=== PATIENT | male | born 1960 | race Caucasian/White ===

== ENCOUNTER 2023-06-25 19:47 | Inpatient (IN) | payer OTHER, SELFPAY ==
[2023-06-25 14:47] VITALS: BP 154/78
[2023-06-25 15:06] LABS: % Basophils 0.4 % (0-2); % Eosinophils 0.1 % (0-6); % Immature Granulocytes 0.4 % (0-0.5); % Lymphocytes 14.4 % (20.5-51.1); % Monocytes 4.5 % (1.7-9.3); % Neutrophils 80.2 % (42.2-75.2); Absolute Basophils 0.1 10^3/uL (0-0.2); Absolute Immature Granulocytes 0.1 10^3/uL (0-0.05); Absolute Monocytes 0.6 10^3/uL (0.1-0.6); Absolute Neutrophils 11.4 10^3/uL (1.4-6.5); Hematocrit 44.7 % (39.0-52.0); Hemoglobin 15.6 g/dL (13.0-18.0); Mean Corp Hgb Conc. 34.9 g/dL (33.0-37.0); Mean Corpuscular Hgb 29.3 pg (27.0-31.0); Mean Platelet Volume 10.8 fL (7.4-10.4); Nucleated Red Blood Cells % 0 % (-); Platelet Count 258 10^3/uL (130-400); Red Blood Cell Count 5.32 10^6/uL (4.70-6.10); Red Cell Dist. Width 13.5 % (11.5-14.5); White Blood Cell Count 14.2 10^3/uL (4.8-10.8)
--- NOTE | 2023-06-25 15:11 | ED.GENMED ---
History of Present Illness
<Ada Starr PA-C - Last Filed: 06/25/23 17:58>
General
Chief Complaint: Abdominal Pain
Source: patient and records
Exam Limitations: none
Time Seen by Provider: 06/25/23 15:11
Nursing documentation reviewed up to this point in time: agreed with
Travel History
Have you had any contact with someone who has COVID-19?: No
Do you have any symptoms of coronavirus? Fever > 100 degrees, chills, cough, shortness of breath, sore throat, loss of taste or smell, muscle aches, or headache?: No
History of Present Illness
History of Present Illness:
63-year-old male with past medical history of arthritis on daily meloxicam presenting emergency department today with sudden onset periumbilical pain for the past 5 hours. Patient states that when the pain first started, he thought it was
indigestion, however as hours progressed, the pain got a lot worse. Patient also has associated nausea with this. Patient states that occasionally he will get mild chest pain with this. Patient notes some nausea as well but denies vomiting,
dizziness, melena, radiation pain to the back, diarrhea. Patient is never had anything like this before. Patient has no history of prior abdominal surgeries. Patient does not drink alcohol.
Review of Systems
<Ada Starr PA-C - Last Filed: 06/25/23 17:58>
Review of Systems
All Other Systems: ROS reviewed and negative except as documented in HPI and ROS
Phy Exam
<Ada Starr PA-C - Last Filed: 06/25/23 17:58>
Physical Exam
Physical Exam:
Vitals: Patient is tachypneic
General: Patient seen writhing in pain, very distressed
Skin: Warm and dry, no rashes
Head: Normocephalic, atraumatic
Eyes: Sclera nonicteric
Cardiac: Regular rate, no murmurs
Peripheral vascular: Patient has 2+ dorsalis pedis pulses bilaterally, equal radial pulses bilaterally. No lower extremity swelling.
Pulm: Patient is tachypneic
Abdomen: Patient has diffuse abdominal tenderness palpation most prominent in the periumbilical region, guarding present. No rebound tenderness. No pulsatile abdominal mass. Abdominal pain with any movement.
Neuro: CN II-XII intact. No focal neurologic deficits.
Course
<Ada Starr PA-C - Last Filed: 06/25/23 17:58>
Orders/Labs/Results
Orders:
Orders
06/25/23 14:51
EKG [Electrocardiogram (*1)] Urgent
Reason for Study: Abdominal Pain
EKG- Treatment ONCE
06/25/23 14:58
Complete Blood Count/With Diff Urgent
Comprehensive Metabolic Panel Urgent
Lipase Urgent
06/25/23 15:27
IV Insert/Care/Rem.- Treatment PRN
Famotidine [Pepcid] 20 mg IV NOW STA
HYDROmorphone [Dilaudid] 1 mg IV NOW STA
Pantoprazole [Protonix IV] 40 mg IV NOW STA
06/25/23 15:37
CT Angio Abd/Pelvis w/wo IV [CT Abd/pelvis Angio W/wo Iv] Urgent
Comment:
Reason For Exam: sudden onset periumbilical pain
06/25/23 15:38
Troponin I Urgent
06/25/23 15:40
Ondansetron Injectable [Zofran] 4 mg IV NOW STA
06/25/23 17:23
0.9% Sodium Chloride 1000 ml [Nss] 1,000 ml IV BOLUS
Abnormal Lab Results
06/25/23
14:58
WBC 14.2 H 10^3/uL
(4.8-10.8)
MPV 10.8 H fL
(7.4-10.4)
Abs Immat Gran (auto) 0.1 H 10^3/uL
(0-0.05)
Absolute Neuts (auto) 11.4 H 10^3/uL
(1.4-6.5)
Neutrophils % 80.2 H %
(42.2-75.2)
Lymphocytes % 14.4 L %
(20.5-51.1)
Glucose 113 H mg/dl
(70-99)
Calcium 10.5 H mg/dl
(8.4-10.2)
Lipase > 4000 H* U/L
(23-300)
06/25/23 14:58
06/25/23 14:58
Vital Signs
Initial and Last Documented VS:
Initial Vital Signs
Temp Pulse Resp BP Pulse Ox
97.9 F 79 24 154/78 99
06/25/23 14:47 06/25/23 14:47 06/25/23 14:47 06/25/23 14:47 06/25/23 14:47
Last Documented Vital Signs
Temp Pulse Resp BP Pulse Ox
97.9 F 79 24 154/78 99
06/25/23 14:47 06/25/23 14:47 06/25/23 14:47 06/25/23 14:47 06/25/23 14:47
<Jesus Holliday, DO - Last Filed: 06/25/23 15:39>
Orders/Labs/Results
Orders:
Orders
06/25/23 14:51
EKG [Electrocardiogram (*1)] Urgent
Reason for Study: Abdominal Pain
EKG- Treatment ONCE
06/25/23 14:58
Complete Blood Count/With Diff Urgent
Comprehensive Metabolic Panel Urgent
Lipase Urgent
06/25/23 15:27
IV Insert/Care/Rem.- Treatment PRN
Famotidine [Pepcid] 20 mg IV NOW STA
HYDROmorphone [Dilaudid] 1 mg IV NOW STA
Pantoprazole [Protonix IV] 40 mg IV NOW STA
06/25/23 15:37
CT Angio Abd/Pelvis w/wo IV [CT Abd/pelvis Angio W/wo Iv] Urgent
Comment:
Reason For Exam: sudden onset periumbilical pain
06/25/23 15:38
Troponin I Urgent
06/25/23 15:40
Ondansetron Injectable [Zofran] 4 mg IV NOW STA
06/25/23 17:23
0.9% Sodium Chloride 1000 ml [Nss] 1,000 ml IV BOLUS
Abnormal Lab Results
06/25/23
14:58
WBC 14.2 H 10^3/uL
(4.8-10.8)
MPV 10.8 H fL
(7.4-10.4)
Abs Immat Gran (auto) 0.1 H 10^3/uL
(0-0.05)
Absolute Neuts (auto) 11.4 H 10^3/uL
(1.4-6.5)
Neutrophils % 80.2 H %
(42.2-75.2)
Lymphocytes % 14.4 L %
(20.5-51.1)
Glucose 113 H mg/dl
(70-99)
Calcium 10.5 H mg/dl
(8.4-10.2)
Lipase > 4000 H* U/L
(23-300)
06/25/23 14:58
06/25/23 14:58
Vital Signs
Initial and Last Documented VS:
Initial Vital Signs
Temp Pulse Resp BP Pulse Ox
97.9 F 79 24 154/78 99
06/25/23 14:47 06/25/23 14:47 06/25/23 14:47 06/25/23 14:47 06/25/23 14:47
Last Documented Vital Signs
Temp Pulse Resp BP Pulse Ox
97.9 F 79 24 154/78 99
06/25/23 14:47 06/25/23 14:47 06/25/23 14:47 06/25/23 14:47 06/25/23 14:47
<Ada Starr PA-C - Last Filed: 06/25/23 17:58>
MDM/Problems Addressed
Differential Diagnosis Includes:
Differentials include AAA, aortic dissection, ACS, gastritis, duodenitis, constipation, pancreatitis, perforated viscus
MDM/Problems Addressed:
Abdominal pain
Chronic conditions affecting care: Other (Arthritis, anxiety)
<CHRYSTAL Ernandez Last Filed: 06/25/23 17:58>
*Pulse Oximetry
Patient hypoxic: no
*EKG
Interpreted by ED Provider?: Yes
EKG Intrepretation Date: 06/25/23
Interpretation: abnormal (patient moving in pain, artifact present)
Comparison EKG: no comparison EKG present
Heart Rate: 68
Rate: normal
Rhythm: sinus
[place]: left axis deviation
Interval: normal interval, normal QT interval and normal ME interval
QRS Pattern: normal QRS
Ischemia: no ischemia
*Critical Care Note
Total Time (30-74mins, 75-104mins- exclusive of procedures): Not Applicable
Data Reviewed
Review of Other/Old Records Reveals: Records (Reviewed ER physician documentation from 01/12/2023) and Discharge Summary (Discharge summaries [facility] to review)
Source: patient and records
<CHRYSTAL Ernandez Last Filed: 06/25/23 17:58>
Patient Management
Escalation/DeEscalation of care consider admission/obs:
Will obtain labs, obtain CTA of the abdomen, give pain medication Protonix, and reassess

63-year-old male with past medical history of anxiety, arthritis presenting emergency department today with sudden onset diffuse abdominal pain. CBC reveals leukocytosis, CMP unremarkable, lipase over 4000. Patient's pain was managed with
Dilaudid. CTA of the abdomen revealed acute pancreatitis with mesenteric edema. IV fluids initiated. Patient accepted by hospitalist for admission. All patient's questions were answered.
<Ada Starr PA-C - Last Filed: 06/25/23 17:58>
Update Note
Update Note:
4:56 pm--reevaluated patient, his pain is significantly improved
ED Attending Note
<Ada Starr PA-C - Last Filed: 06/25/23 17:58>
-
Portions of this chart may have been created with voice recognition software.� Occasional wrong word or��sound alike� substitutions may have occurred due to the inherent limitations of voice recognition software.
<Jesus Holliday DO - Last Filed: 06/25/23 15:39>
ED Attending Note
Patient seen and examined by attending physician: Yes
I performed the substantive portion of visit, reviewed & personally made and approve the management plan that is documented in note by myself or FERNANDO.: Yes
ED Attending Note:
I have seen and evaluated the patient with a [id number] encounter. I have spoken to the advance practicer provider and involved in the medical history, the physical exam, medical decision making.
Evaluation and management service: agree unless noted differently below.
Results interpretation: agree unless noted differently below.
Focused HPI: 63-year-old male presenting with mid abdominal pain. Patient complains of sudden onset of pain. He complains of nausea and the feeling that he has to defecate. He complains of back pain but states this is somewhat chronic.
Physical exam: Uncomfortable, moaning in pain. Mid abdominal tenderness without rebound
Medical Decision Making: Given the sudden onset nature and his physical exam, will obtain CTA to rule out ruptured aortic aneurysm versus bowel perforation.
Discharge Plan
Departure
Patient Disposition: Admit
Date of Disposition: 06/25/23
Time of Disposition: 17:42
Presentation/result/management discussed w/ accepting MD/DO: Hospitalist
Patient with high blood pressure during this ER visit?: Yes
Condition: Fair
Discharge Problem:
Acute pancreatitis
Prescriptions:
No Action
meloxicam 15 mg Tablet
15 mg PO DAILY
sertraline 100 mg tablet
100 mg PO DAILY
Referrals:
Elías Lake DO [Family Provider] -
Interventions
Interventions:
*Risk Screen - Suicide Last Done: 06/25/23 14:49
*General Assessment Last Done: 06/25/23 14:49
*Neglect/Abuse Screening Last Done: 06/25/23 14:49
EW-Vavvmj-Zbaxgrrdso Assessment Last Done: 06/25/23 16:06
Discharge Date and Time
Print Language: MALTESE
[2023-06-25 15:21] LABS: ALT (SGPT) 27 U/L (0-50); AST (SGOT) 32 U/L (17-59); Albumin 4.8 g/dl (3.5-5.0); Alkaline Phosphatase 82 U/L (38-126); Blood Urea Nitrogen 19 mg/dl (9-20); Calcium 10.5 mg/dl (8.4-10.2); Carbon Dioxide 24 mmol/L (22-30); Chloride 102 mmol/L (98-107); Glucose 113 mg/dl (70-99); Potassium 4.6 mmol/L (3.5-5.1); Sodium 135 mmol/L (135-145); Total Bilirubin 1.3 mg/dl (0.2-1.3); Total Protein 7.6 g/dl (6.3-8.2); eGFR > 60.00
[2023-06-25] MEDS: PEPCID 20 MG IV (15:37)
[2023-06-25] MEDS: DILAUDID 1 MG IV (15:37)
[2023-06-25] MEDS: PROTONIX IV 40 MG IV (15:38)
[2023-06-25] MEDS: ZOFRAN 4 MG IV (16:03)
[2023-06-25 16:20] LABS: Troponin I < 0.012 ng/ml
[2023-06-25 17:12] LABS: Lipase > 4000 U/L (23-300)
--- NOTE | 2023-06-25 17:46 | HPS.HSE ---
Family Physician
-
Family Physician: Elías Lake
Chief Complaint
-
Abdomen Pain
History of Present Illness
63M hx arthritis on meloxicam anxiety presents with acute epigastric pain that started in the morning after coffee. Patient at first thought he was having indigestion and attempted alleviate symptoms by drinking soda and attempting to burp.
However symptoms continue to worsen prompting visit to ED. Patient reports being in his usual state of health prior to onset of symptoms. Reports being on meloxicam for 20 years without issues. Denies current smoking or drinking. Describes diet
as 'terrible' unhealthy. reported that they recently were cutting back on beef and the dinner they had night before was lean turkey. Afebrile VSS relatively stable, BP likely elevated due to pain. Labs noted Lipase >4000. Mild
Hypercalcemia 10.5 likely 2/2 pancreatitis. Mild leukocytosis likely stress reactive. LFTs wnl. Elevated cholesterol but triglycerides wnl. CT abd/pelvis was significant for acute pancreatitis. Gallbladder, kidneys, and bladder were noted to be
normal.
Medical History
Past Medical History
Past Medical History: Reports Other (as above)
Past Surgical History: Reports Other (as above)
Social History
Tobacco: Former Smoker
Alcohol: Former
Drug: None
Personal:
Living: With Family
Employment: Employed
Family History
Family History: Not pertinent (reviewed)
Allergies / Home Medications
Allergies reflects when Allergies were last updated in [facility].
Home Medications with original date entered in [facility]
Allergy/Medication List:
Allergies
Allergy/AdvReac Type Severity Reaction Status Date / Time
No Known Allergies Allergy Verified 06/25/23 14:49
Home Medications
meloxicam 15 mg tablet 15 mg PO DAILY 06/25/23
sertraline 100 mg tablet 100 mg PO DAILY 06/25/23
Review of Systems
-
A 12 point ROS was completed and negative except as noted: Yes
Constitutional: Reports Other (as below)
Physical Exam
Vital Signs
Vital Signs
Temp Pulse Resp BP Pulse Ox
97.9 F 79 24 154/78 99
06/25/23 14:47 06/25/23 14:47 06/25/23 14:47 06/25/23 14:47 06/25/23 14:47
Physical Exam
General: Other (as below)
Laboratory Results
-
06/25/23 14:58
06/25/23 14:58
Laboratory Results
Total Bilirubin 1.3 mg/dl (0.2-1.3) 06/25/23 14:58
AST 32 U/L (17-59) 06/25/23 14:58
ALT 27 U/L (0-50) 06/25/23 14:58
Alkaline Phosphatase 82 U/L (38-126) 06/25/23 14:58
Troponin I < 0.012 ng/ml 06/25/23 15:38
Lipase > 4000 U/L (23-300) H* 06/25/23 14:58
Impression/Plan
-
ROS
General: Denies fever chills night sweats unexpected weight loss
Neuro: Denies seizure shaking loss of consciousness dizziness vertigo
Psych: denies depression hallucinations confusion manic episodes
Endocrine: Denies polyuria polydipsia polyphagia heat/cold intolerance
HEENT: Denies blindness visual disturbances epistaxis
Pulmonary: denies coughing hemoptysis sneezing sob dyspnea on exertion
Cardiovascular: denies chest pain palpitations leg swelling
Hematology: denies signs symptoms of anemia easy bruising/bleeding
Gastrointestinal: reports severe abd pain, nausea denies vomiting diarrhea constipation hematemesis hematochezia melena
Genito-Urinary: denies retention incontinence dysuria
Musculoskeletal: reports chronic joint pain
Dermatology: denies rash laceration bruising
Physical Exam
General: Acute distress due to pain
HEENT: Throat clear. Normocephalic atraumatic
NECK: Supple. No JVD Carotid Bruits
RESPIRATORY: Lungs clear to auscultation. No crackles wheezes stridor
CVS: S1, S2 sinus keenan. No murmur, rub or gallop.
ABDOMEN: Soft, Tender, distended vs body habitus Decreased bowel sounds
EXTREMITIES: No peripheral cyanosis or edema.
IRON PILER: AOx3
IMPRESSION:
63 male history of arthritis on meloxicam 20 years anxiety sertraline reports presents with acute progressive abdomen pain epigastric less than 1 day duration. Found to have pancreatitis, lipase greater than [address] abdomen pelvis
which also noted normal gallbladder. LFTs WNL.
PLAN:
#Acute pancreatitis unclear etiology possibly NSAID induced versus diet
Telemetry admit
Bowel rest n.p.o. except meds sips of clears
IVF hydration
Pain control IV Dilaudid 0.5 mg Q3HPRN mod pain, 1 mg Q3HPRN severe pain
anti-nausea medication prn zofran
GI eval requested
#Anxiety
cont home Sertraline
#Sinus Keenan 50s BP stable
monitor on tele
#HTN likely 2/2 pain
cont pain control as above
consider antihypertensive if BP remains elevated despite pain control
#Arthritis
cont pain control with opiates as above
avoid further NSAID use for now, suspicion possible NSAID induced pancreatitis
dvt ppx lovenox
gi ppx Protonix
meds reconciled and resumed as appropriate
Full Code
Discussed with patient and his Elisabet at bedside
I spent a total of 80 minutes with the patient or on the floor. More than 50% of this time involved counseling and coordination of care.
[2023-06-25 18:12] VITALS: BP 174/100
[2023-06-25] MEDS: NSS 1000 IV (18:13)
[2023-06-25] MEDS: DILAUDID 0.5 MG IV ×4 (18:14→20:55)
[2023-06-25] MEDS: TORADOL 15 MG IV (19:07)
[2023-06-25 19:35] LABS: Total Cholesterol 245 mg/dl (50-199); Triglyceride 73 mg/dl (10-149); Very Low Density Lipoprotein 14 mg/dl (0-30)
[2023-06-25 19:53] LABS: HDL Cholesterol 63 mg/dl; LDL Cholesterol, Calculated 168 mg/dl
[2023-06-25 20:27] VITALS: BMI 35.0
[2023-06-25 20:30] VITALS: BP 178/98
[2023-06-25] MEDS: LR 1000 IV (21:50)
[2023-06-25] MEDS: OFIRMEV 100 IV (21:51)
[2023-06-25 23:36] VITALS: BP 162/91
[2023-06-26] MEDS: DILAUDID 0.5 MG IV ×4 (00:07→12:50)
[2023-06-26] MEDS: ZOFRAN 4 MG IV ×2 (03:31→09:46)
[2023-06-26 03:35] VITALS: BP 165/95
[2023-06-26 06:00] VITALS: BMI 35.0
[2023-06-26] MEDS: LR 1000 IV ×3 (06:30→20:56)
[2023-06-26] MEDS: DILAUDID 1 MG IV (06:33)
--- NOTE | 2023-06-26 07:02 | W.PN.HOSP.TC ---
Today's Communication/Plan
-
MRCP
cont bowel rest pain control anti-emetic
IVF hydration
Assessment / Plan
Assessment / Plan
Physical Exam
General: mild moderate distress due to abd pain
HEENT: Throat clear. Normocephalic atraumatic
NECK: Supple. No JVD Carotid Bruits
RESPIRATORY: Lungs clear to auscultation. No crackles wheezes stridor
CVS: S1, S2 sinus keenan. No murmur, rub or gallop.
ABDOMEN: Soft, Tender, Decreased bowel sounds
EXTREMITIES: No peripheral cyanosis or edema.
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
IMPRESSION:
63 male history of arthritis on meloxicam 20 years anxiety sertraline reports presents with acute progressive abdomen pain epigastric less than 1 day duration. Found to have pancreatitis, lipase greater than [address] abdomen pelvis
which also noted normal gallbladder. LFTs WNL.
PLAN:
#Acute pancreatitis unclear etiology possibly NSAID induced versus diet
Telemetry admit
Bowel rest n.p.o. except meds sips of clears
cont IVF hydration
Pain control IV Dilaudid 0.5 mg Q3HPRN mod pain, 1 mg Q3HPRN severe pain
anti-nausea medication prn zofran
GI eval appreciated checking MRCP
#Anxiety
cont home Sertraline
#Sinus Keenan 50s BP stable
monitor on tele
#HTN likely 2/2 pain
cont pain control as above
consider antihypertensive if BP remains elevated despite pain control
#Arthritis
cont pain control with opiates as above
avoid further NSAID use for now, suspicion possible NSAID induced pancreatitis
dvt ppx lovenox
gi ppx Protonix
Full Code
I spent a total of 55 minutes with the patient or on the floor. More than 50% of this time involved counseling and coordination of care.
Anticipated Discharge: 24 - 48 hours
Subjective/Interval History
-
Date of Service: June 26, 2023
Seen and examined at bedside in mild moderate distress due to abd pain lying on his side. Patient though reports significant improvement in pain since initial presentation on admission. Reports some nausea controlled with prn antiemetic, denies
vomiting.
Objective Data
-
Labs:
Laboratory Results
06/26/23
07:01
WBC Pending
Hgb Pending
Hct Pending
Plt Count Pending
Sodium Pending
Potassium Pending
Chloride Pending
Carbon Dioxide Pending
BUN Pending
Creatinine Pending
Glucose Pending
Calcium Pending
Total Bilirubin Pending
AST Pending
ALT Pending
Alkaline Phosphatase Pending
Vital Signs:
Vital Signs
Temp Pulse Resp BP Pulse Ox
98.4 F 68 18 165/95 95
06/26/23 03:35 06/26/23 03:35 06/26/23 03:35 06/26/23 03:35 06/26/23 03:35
[2023-06-26 07:20] LABS: Hematocrit 43.7 % (39.0-52.0); Hemoglobin 15.3 g/dL (13.0-18.0); Mean Corpuscular Hgb 29.7 pg (27.0-31.0); Mean Corpuscular Volume 84.9 fL (80.0-94.0); Mean Platelet Volume 10.8 fL (7.4-10.4); Platelet Count 232 10^3/uL (130-400); Red Blood Cell Count 5.15 10^6/uL (4.70-6.10); Red Cell Dist. Width 13.3 % (11.5-14.5); White Blood Cell Count 12.7 10^3/uL (4.8-10.8)
[2023-06-26 07:42] LABS: ALT (SGPT) 26 U/L (0-50); AST (SGOT) 25 U/L (17-59); Albumin 4.1 g/dl (3.5-5.0); Alkaline Phosphatase 70 U/L (38-126); Blood Urea Nitrogen 13 mg/dl (9-20); Calcium 9.1 mg/dl (8.4-10.2); Carbon Dioxide 25 mmol/L (22-30); Chloride 103 mmol/L (98-107); Direct Bilirubin 0.2 mg/dl (0.0-0.4); Estimated Creatinine Clearance > 125 ml/min; Glucose 121 mg/dl (70-99); Magnesium 1.9 mg/dl (1.6-2.3); Phosphorus 3.8 mg/dl (2.5-4.5); Potassium 4.1 mmol/L (3.5-5.1); Sodium 134 mmol/L (135-145); Total Bilirubin 1.8 mg/dl (0.2-1.3); Total Cholesterol 207 mg/dl (50-199); Total Protein 6.8 g/dl (6.3-8.2); Triglyceride 49 mg/dl (10-149); Very Low Density Lipoprotein 9 mg/dl (0-30); eGFR > 60.00
[2023-06-26 07:43] LABS: HDL Cholesterol 65 mg/dl; LDL Cholesterol, Calculated 133 mg/dl
[2023-06-26 08:05] VITALS: BP 147/78
[2023-06-26 08:20] LABS: Lipase > 4000 U/L (23-300)
[2023-06-26] MEDS: NSS (PRESERVATIVE FREE) 10 ML IV ×2 (09:00→20:56)
[2023-06-26] MEDS: PROTONIX IV 40 MG IV ×2 (09:00→20:55)
[2023-06-26] MEDS: ZOLOFT 100 MG PO (09:00)
--- NOTE | 2023-06-26 10:52 | PTCARENOTE ---
Patient ambulates to bathroom with steady gait. Patient c/o abdominal pain throughout. At rest pain is a 2/20, with any movement pain is a 6/10. Dilaudid given for pain with good relief. Patient requested Zofran, as Dilaudid makes him nauseous.
--- NOTE | 2023-06-26 11:09 | CON.GI ---
Consultation
-
Date/Time Consultation Requested: 06/26/23
Date/Time Consultation Performed: 06/26/23
Requesting Provider:
Performing Provider:
Reason for Consultation: acute pancreatitis
Medical History
Chief Complaint / HPI
Chief Complaint: epigastric pain
History of Present Illness:
This is a 63-year-old male with past medical history of arthritis on chronic meloxicam, anxiety who was in his usual state of health up until yesterday morning he started to have epigastric pain radiating to the back which progressively worsened
which prompted him to come to the emergency room. He did have nausea associated with the pain but no vomiting no fevers or chills. He denies prior history of similar symptoms. He also denies any symptoms of reflux or dysphagia. He does have
occasional constipation. No rectal bleeding or melena. He had a Cologuard 2 years ago he never had an endoscopy or colonoscopy in the past, on admission he was noted to have acute pancreatitis on CT with elevated lipase level and on ultrasound was
noted to have gallbladder polyps and gallbladder sludge with dilated CBD of 13 mm.
Past Medical History
Past Medical History: Other ( arthritis, anxiety )
Past Surgical History: None
Social History
Tobacco: Former Smoker
Alcohol: None
Drug: None
Family History
Family History: Reviewed & Not Pertinent
Allergies / Home Medications
Allergy/AdvReac Type Severity Reaction Status Date / Time
No Known Allergies Allergy Verified 06/25/23 14:49
�Medication �Instructions �Recorded
meloxicam 15 mg tablet 15 mg PO DAILY Pain 06/25/23
sertraline 100 mg tablet 100 mg PO DAILY Mental 06/25/23
Health/Anxiety
Review of Systems
-
All other systems: A 12 pt ROS was Negative except as stated above in HPI
Vital Signs
Temp Pulse Resp BP Pulse Ox
98.1 F 54 16 147/78 97
06/26/23 08:05 06/26/23 08:05 06/26/23 08:05 06/26/23 08:05 06/26/23 08:05
Physical Exam
Exam
General: No Apparent Distress
HEENT: Normocephalic
Respiratory: Clear
Cardiac: S1/S2 and Regular Rhythm
GI: Soft, Non Distended, Normal Bowel Sounds and Tender (epigastric area)
Musculoskeletal: No Clubbing
Skin: Warm
Neuro: Awake, Alert and Oriented
Psych: Calm
Results
WBC 12.7 10^3/uL (4.8-10.8) H 06/26/23 07:01
Hgb 15.3 g/dL (13.0-18.0) 06/26/23 07:01
Hct 43.7 % (39.0-52.0) 06/26/23 07:01
MCV 84.9 fL (80.0-94.0) 06/26/23 07:01
Plt Count 232 10^3/uL (130-400) 06/26/23 07:01
Absolute Neuts (auto) 11.4 10^3/uL (1.4-6.5) H 06/25/23 14:58
Sodium 134 mmol/L (135-145) L 06/26/23 07:01
Potassium 4.1 mmol/L (3.5-5.1) 06/26/23 07:01
Chloride 103 mmol/L (98-107) 06/26/23 07:01
Carbon Dioxide 25 mmol/L (22-30) 06/26/23 07:01
BUN 13 mg/dl (9-20) 06/26/23 07:01
Creatinine 0.7 mg/dL (0.7-1.3) 06/26/23 07:01
Calcium 9.1 mg/dl (8.4-10.2) 06/26/23 07:01
Total Bilirubin 1.8 mg/dl (0.2-1.3) H 06/26/23 07:01
AST 25 U/L (17-59) 06/26/23 07:01
ALT 26 U/L (0-50) 06/26/23 07:01
Alkaline Phosphatase 70 U/L (38-126) 06/26/23 07:01
Lipase > 4000 U/L (23-300) H* 06/26/23 07:01
Diagnostic Image Results:
06/25/23 US
IMPRESSION:
Pancreas is suboptimally visualized
There are 2 gallbladder polyps measuring up to 6 mm
There is biliary sludge in the gallbladder and dilatation of the common bile duct to 13 mm suggesting distal biliary obstruction
06/25/23 CT abdomen/pelvis
IMPRESSION:
There is acute pancreatitis with moderate hazy inflammatory stranding around the head and neck and uncinate process of the pancreas associated with edema in the mesentery and along the pararenal fascia bilaterally
Prior GI Procedures:
EGD: none
Colonoscopy: none
COLOGUARD 2021 neg per patient
Assessment / Plan
-
Acute pancreatitis most likely gallstone pancreatitis. No history of alcohol could also be related to chronic NSAIDs. Triglyceride and calcium level are normal doubt autoimmune pancreatitis. Will get an MRI with MRCP, ultrasound shows gallbladder
polyps gallbladder sludge and also dilated CBD. Continue n.p.o. IV fluids, pain control, nausea meds as needed, continue PPI for now. If pain is improved tomorrow could start him on clear liquids.
Data Reviewed
-
CT Scan: Report Reviewed by me
Ultrasound: Report Reviewed by me
-
-
Thank you for consultation and allowing me to participate in the patient's care. Please call the ironworker foreman GI physician during the after hours with any questions or concerns.
[2023-06-26 12:10] VITALS: BP 138/81
--- NOTE | 2023-06-26 13:26 | CM ---
CM following re: discharge planning.
Reviewed pt's chart, met with pt and pt's spouse at bedside.
Pt is a 63 year old male, admitted with primary dx of pancreatitis.
Pt reports he lives with spouse and 2 grandchildren in a 2SH, 3 steps to enter, has 4 supportive children. 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 pt expressed his desire to return back home at discharge.
PCP: Elías Lake
Pharm[facility]: [facility]
D/C plan: home with anticipated no needs. Spouse to transport at discharge.
CM will follow with discharge plan updates as hospitalization progresses
[2023-06-26 15:20] VITALS: BP 107/60
[2023-06-26] MEDS: LOVENOX 40 MG SC (17:30)
[2023-06-26 19:43] VITALS: BP 134/87
[2023-06-26] MEDS: TYLENOL 650 MG PO (20:55)
[2023-06-26] MEDS: SENOKOT-S 1 TABLET PO (20:55)
[2023-06-26] MEDS: MELATONIN 5 MG PO (22:57)
[2023-06-26 23:36] VITALS: BP 108/63
[2023-06-27] VITALS (7 sets, daily range): BP systolic 123–164; BP diastolic 57–92; BMI 34.8
[2023-06-27] MEDS: LR 1000 IV ×3 (03:16→19:40)
[2023-06-27] MEDS: TYLENOL 650 MG PO ×4 (03:41→17:36)
--- NOTE | 2023-06-27 06:36 | W.PN.HOSP.TC ---
Today's Communication/Plan
-
IVF reduced rat
clear liquid diet
pain control
prn antiemetic
Assessment / Plan
Assessment / Plan
Physical Exam
General: mild moderate distress due to abd pain
HEENT: Throat clear. Normocephalic atraumatic
NECK: Supple. No JVD Carotid Bruits
RESPIRATORY: Lungs clear to auscultation. No crackles wheezes stridor
CVS: S1, S2 sinus keenan. No murmur, rub or gallop.
ABDOMEN: Soft, Tender, Decreased bowel sounds
EXTREMITIES: No peripheral cyanosis or edema.
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
IMPRESSION:
63 male history of arthritis on meloxicam 20 years anxiety sertraline reports presents with acute progressive abdomen pain epigastric less than 1 day duration. Found to have pancreatitis, lipase greater than [address] abdomen pelvis
which also noted normal gallbladder. LFTs WNL.
PLAN:
#Acute pancreatitis unclear etiology possibly passed gallstone vs NSAID induced versus diet
Pain control IV Dilaudid 0.5 mg Q3HPRN mod pain, 1 mg Q3HPRN severe pain
anti-nausea medication prn zofran
MRCP appreciated
-acute interstitial edematous pancreatitis w/o overt complication
-CBD dilatation w/o overt stricture/filling defect
GI eval appreciated
-diet advanced to clears
-IVF rate reduced
-avoid NSAIDs after discharge
-possible outpt EUS
#Anxiety
cont home Sertraline
#HTN likely 2/2 pain
cont pain control as above
consider antihypertensive if BP remains elevated despite pain control
#Arthritis
cont pain control with opiates as above
avoid further NSAID use for now
#Leukocytosis
possibly stress reactive
monitor off abx for now
trend WBC
dvt ppx lovenox
gi ppx Protonix
Full Code
I spent a total of 55 minutes with the patient or on the floor. More than 50% of this time involved counseling and coordination of care.
Anticipated Discharge: 24 - 48 hours
Subjective/Interval History
-
Date of Service: June 27, 2023
Pain improved. Tolerating clear liquid diet.
Objective Data
-
Labs:
Laboratory Results
06/27/23
06:00
WBC Pending
Hgb Pending
Hct Pending
Plt Count Pending
Sodium Pending
Potassium Pending
Chloride Pending
Carbon Dioxide Pending
BUN Pending
Creatinine Pending
Glucose Pending
Calcium Pending
Total Bilirubin Pending
AST Pending
ALT Pending
Alkaline Phosphatase Pending
Vital Signs:
Vital Signs
Temp Pulse Resp BP Pulse Ox
98.0 F 60 16 123/57 96
06/27/23 03:24 06/27/23 03:24 06/27/23 03:24 06/27/23 03:24 06/27/23 03:24
I&O
06/25/23 06/26/23 06/27/23
06:59 06:59 06:59
Intake Total 2873 / 2873
Balance 2873 / 2873
[2023-06-27 07:46] LABS: Hematocrit 42.1 % (39.0-52.0); Hemoglobin 14.3 g/dL (13.0-18.0); Mean Corpuscular Hgb 29.6 pg (27.0-31.0); Mean Corpuscular Volume 87.2 fL (80.0-94.0); Mean Platelet Volume 11.6 fL (7.4-10.4); Platelet Count 201 10^3/uL (130-400); Red Blood Cell Count 4.83 10^6/uL (4.70-6.10); Red Cell Dist. Width 13.4 % (11.5-14.5); White Blood Cell Count 16.1 10^3/uL (4.8-10.8)
[2023-06-27 08:08] LABS: ALT (SGPT) 20 U/L (0-50); AST (SGOT) 18 U/L (17-59); Albumin 3.7 g/dl (3.5-5.0); Alkaline Phosphatase 69 U/L (38-126); Blood Urea Nitrogen 10 mg/dl (9-20); Calcium 9.1 mg/dl (8.4-10.2); Carbon Dioxide 25 mmol/L (22-30); Chloride 104 mmol/L (98-107); Estimated Creatinine Clearance 121 ml/min; Glucose 104 mg/dl (70-99); Lipase 455 U/L (23-300); Magnesium 1.9 mg/dl (1.6-2.3); Potassium 4.1 mmol/L (3.5-5.1); Sodium 134 mmol/L (135-145); Total Bilirubin 2.1 mg/dl (0.2-1.3); Total Protein 6.3 g/dl (6.3-8.2); eGFR > 60.00
[2023-06-27] MEDS: SENOKOT-S 1 TABLET PO ×2 (08:13→21:02)
[2023-06-27] MEDS: NSS (PRESERVATIVE FREE) 10 ML IV ×2 (08:14→21:02)
[2023-06-27] MEDS: ZOLOFT 100 MG PO (08:14)
[2023-06-27] MEDS: PROTONIX IV 40 MG IV ×2 (08:15→21:02)
--- NOTE | 2023-06-27 09:03 | W.PN.GI.CBS2 ---
Today's Communication / Plan
-
clears
Continue IVF decrease rate
Assessment / Plan
-
This is a 63-year-old male with past medical history of arthritis on chronic meloxicam, anxiety who presented with his first episode of acute pancreatitis
-most likely gallstone pancreatitis ? passed stone.
-ultrasound shows gallbladder polyps and gallbladder sludge and also dilated CBD, but MRCP neg for CBD stone also no GS seen on MRI
-No history of alcohol could also be related to chronic NSAIDs.
-Triglyceride and calcium level are normal, doubt autoimmune pancreatitis.
-Continue IV fluids, pain control, nausea meds as needed, continue PPI for now.
-will start clears since pain is improved
-AVOID NSAIDS after DC
-Consider OP EUS
Subjective
Subjective
Date of Service: June 27, 2023
Pain is improved no nausea or vomiting, afebrile and lipase is improved markedly. WBC count slightly higher today
Objective
Data Reviewed
Laboratory Data:
Laboratory Results
06/27/23 07:03
06/27/23 07:03
Laboratory Results
Phosphorus 3.8 mg/dl (2.5-4.5) 06/26/23 07:01
Magnesium 1.9 mg/dl (1.6-2.3) 06/27/23 07:03
Total Bilirubin 2.1 mg/dl (0.2-1.3) H 06/27/23 07:03
AST 18 U/L (17-59) 06/27/23 07:03
ALT 20 U/L (0-50) 06/27/23 07:03
Alkaline Phosphatase 69 U/L (38-126) 06/27/23 07:03
Lipase 455 U/L (23-300) H 06/27/23 07:03
Vital Signs and I&O:
Vital Signs
Temp Pulse Resp BP Pulse Ox
98.5 F 68 16 160/84 96
06/27/23 07:59 06/27/23 07:59 06/27/23 07:59 06/27/23 07:59 06/27/23 07:59
I&O
06/26/23 06/27/23 06/28/23
06:59 06:59 06:59
Intake Total 2873 / 2873 1919
Balance 2873 / 2873 1919
06/26/23 MRI WITH MRCP
IMPRESSION:
Acute interstitial edematous pancreatitis without overt complication.
Common bile duct dilatation without overt stricture or filling defect.
Physical Exam
Physical Exam
Cardiology: Normal Sinus Rhythm
Pulmonary: Clear
GI: Soft, Non Distended, Tender (Mild epigastric tenderness) and Normal Bowel Sounds
[2023-06-27] MEDS: LOVENOX 40 MG SC (17:28)
[2023-06-27] MEDS: ZOFRAN 4 MG IV (21:08)
[2023-06-27] MEDS: DILAUDID 0.5 MG IV (21:08)
--- NOTE | 2023-06-27 21:10 | PTCARENOTE ---
Addendum entered by Alanna Acuña RN 06/28/23 00:03:
Pt sleeping soundly at present. No complaints at this time.
Original Note:
On initial assessment, pt had just returned from the bathroom attempting to have a bowel movement. Pt stated feeling very flushed, nauseated and having increased upper abdominal pain. B/P checked at that time and was 153/85. Pt medicated with Zofran
4mg IV and Dilaudid 0.5mg IV. Will continue to monitor.
[2023-06-28 03:01] VITALS: BP 177/95
[2023-06-28] MEDS: DILAUDID 0.5 MG IV ×7 (03:13→23:55)
[2023-06-28] MEDS: LR 1000 IV ×2 (05:19→17:34)
[2023-06-28 06:00] VITALS: BMI 34.9
[2023-06-28 07:45] VITALS: BP 162/84
[2023-06-28 08:11] LABS: Hematocrit 40.4 % (39.0-52.0); Hemoglobin 13.6 g/dL (13.0-18.0); Mean Corp Hgb Conc. 33.7 g/dL (33.0-37.0); Mean Corpuscular Hgb 29.5 pg (27.0-31.0); Mean Corpuscular Volume 87.6 fL (80.0-94.0); Mean Platelet Volume 11.7 fL (7.4-10.4); Platelet Count 198 10^3/uL (130-400); Red Blood Cell Count 4.61 10^6/uL (4.70-6.10); Red Cell Dist. Width 13.5 % (11.5-14.5); White Blood Cell Count 15.9 10^3/uL (4.8-10.8)
[2023-06-28] MEDS: PROTONIX IV 40 MG IV (08:25)
[2023-06-28] MEDS: SENOKOT-S 1 TABLET PO ×2 (08:25→20:46)
[2023-06-28] MEDS: ZOLOFT 100 MG PO (08:25)
[2023-06-28] MEDS: NSS (PRESERVATIVE FREE) 10 ML IV (08:26)
[2023-06-28 08:50] LABS: ALT (SGPT) 17 U/L (0-50); AST (SGOT) 16 U/L (17-59); Albumin 3.5 g/dl (3.5-5.0); Alkaline Phosphatase 77 U/L (38-126); Blood Urea Nitrogen 8 mg/dl (9-20); Calcium 8.7 mg/dl (8.4-10.2); Carbon Dioxide 25 mmol/L (22-30); Chloride 102 mmol/L (98-107); Direct Bilirubin 0.4 mg/dl (0.0-0.4); Estimated Creatinine Clearance > 125 ml/min; Glucose 111 mg/dl (70-99); Magnesium 1.8 mg/dl (1.6-2.3); Potassium 3.7 mmol/L (3.5-5.1); Sodium 132 mmol/L (135-145); Total Bilirubin 1.6 mg/dl (0.2-1.3); Total Protein 6.2 g/dl (6.3-8.2); eGFR > 60.00
--- NOTE | 2023-06-28 09:28 | W.PN.GI.CBS2 ---
Addendum entered and electronically signed by Sweta Browning MD 06/28/23 09:32:
Also has chronic constipation currently on senna added MiraLAX. He did have a Cologuard 2 years ago which was negative will need repeat Cologuard next year or colonoscopy.
Original Note:
Today's Communication / Plan
-
adv diet to LFD
Assessment / Plan
-
This is a 63-year-old male with past medical history of arthritis on chronic meloxicam, anxiety who presented with his first episode of acute pancreatitis
-most likely gallstone pancreatitis ? passed stone.
-ultrasound shows gallbladder polyps and gallbladder sludge and also dilated CBD, but MRCP neg for CBD stone also no GS seen on MRI
-No history of alcohol could also be related to chronic NSAIDs.
-Triglyceride and calcium level are normal, doubt autoimmune pancreatitis.
-Will advance diet to low-fat diet and if tolerates okay to DC home later today or tomorrow
-Will decrease IVF.
-AVOID NSAIDS after DC
-Consider OP EUS
Subjective
Subjective
Date of Service: June 28, 2023
Pain is markedly improved. Passing flatus no BM yet, no nausea or vomiting, no fevers or chills. Still with mild leukocytosis
Objective
Data Reviewed
Laboratory Data:
Laboratory Results
06/28/23 07:21
06/28/23 07:21
Laboratory Results
Phosphorus 3.8 mg/dl (2.5-4.5) 06/26/23 07:01
Magnesium 1.8 mg/dl (1.6-2.3) 06/28/23 07:21
Total Bilirubin 1.6 mg/dl (0.2-1.3) H 06/28/23 07:21
AST 16 U/L (17-59) L 06/28/23 07:21
ALT 17 U/L (0-50) 06/28/23 07:21
Alkaline Phosphatase 77 U/L (38-126) 06/28/23 07:21
Lipase 455 U/L (23-300) H 06/27/23 07:03
Vital Signs and I&O:
Vital Signs
Temp Pulse Resp BP Pulse Ox
99.1 F 71 20 162/84 97
06/28/23 07:45 06/28/23 07:45 06/28/23 07:45 06/28/23 07:45 06/28/23 07:45
I&O
06/27/23 06/28/23 06/29/23
06:59 06:59 06:59
Intake Total 2873 / 2873 3100 / 3100
Balance 2873 / 2873 3100 / 3100
Physical Exam
Physical Exam
Cardiology: Normal Sinus Rhythm
Pulmonary: Clear
GI: Soft, Non Distended, Tender (mild epigastric tenderness) and Normal Bowel Sounds
[2023-06-28] MEDS: MIRALAX 17 GRAMS PO (10:28)
--- NOTE | 2023-06-28 11:00 | PTCARENOTE ---
Patient reports worsening epigastric pain after consuming low fat diet. Patient diet downgraded to clears. Will monitor and provided pain management.
[2023-06-28 12:55] VITALS: BP 163/86
--- NOTE | 2023-06-28 12:55 | W.PN.HOSP.TC ---
Today's Communication/Plan
-
Advance diet
DC iv fluids if tolerating diet
Assessment / Plan
Assessment / Plan
IMPRESSION:
63 male history of arthritis on meloxicam 20 years anxiety sertraline reports presents with acute progressive abdomen pain epigastric less than 1 day duration. Found to have pancreatitis, lipase greater than [address] abdomen pelvis
which also noted normal gallbladder. LFTs WNL.
PLAN:
#Acute pancreatitis unclear etiology possibly passed sludge vs stone vs NSAID induced
Ultrasound of biliary system was read as 2 polyps in the gallbladder and biliary sludge and dilatation of the common bile duct
Abdominal MRI shows acute interstitial edematous pancreatitis w/o overt complication,CBD dilatation w/o overt stricture/filling defect. The gallbladder was unremarkable on abdominal MRI ? polyps were stones which were passed . Will check with
radiologist regarding sensitivity of MRI in gallstones.
GI eval appreciated
-diet advanced to low fat
-IVF rate reduced
-avoid NSAIDs after discharge
-possible outpt EUS
#Anxiety
cont home Sertraline
#HTN likely 2/2 pain
cont pain control as above
consider antihypertensive if BP remains elevated despite pain control
#Arthritis
cont pain control with opiates as above
avoid further NSAID use for now
#Leukocytosis
possibly stress reactive
monitor off abx for now
trend WBC
dvt ppx lovenox
gi ppx Protonix
Full Code
Anticipated Discharge: Within 24 hours
Subjective/Interval History
-
Date of Service: June 28, 2023
Feeling improved from abdominal pain standpoint. Mostly it is mild discomfort in the upper abdomen. No nausea.
No fever or chills.
Objective Data
-
Labs:
Laboratory Results
06/28/23
07:21
WBC 15.9 H
Hgb 13.6
Hct 40.4
Plt Count 198
Sodium 132 L
Potassium 3.7
Chloride 102
Carbon Dioxide 25
BUN 8 L
Creatinine 0.7
Glucose 111 H
Calcium 8.7
Total Bilirubin 1.6 H
AST 16 L
ALT 17
Alkaline Phosphatase 77
Vital Signs:
Vital Signs
Temp Pulse Resp BP Pulse Ox
99.1 F 71 20 162/84 97
06/28/23 07:45 06/28/23 07:45 06/28/23 07:45 06/28/23 07:45 06/28/23 07:45
I&O
06/27/23 06/28/23 06/29/23
06:59 06:59 06:59
Intake Total 2873 / 2873 3100 / 3100
Balance 2873 / 2873 3100 / 3100
Review of Systems
-
Respiratory: Denies Trouble Breathing
Cardiac: Denies Chest Pain
Neuro: Denies Dizzy
Physical Exam
-
General: No Apparent Distress
HEENT: Moist Mucous Membranes
Respiratory: Clear to Auscultation
Cardiac: Regular Rhythm and S1/S2
GI: Soft
Neuro: AO x 3
Psych: Calm
Data Reviewed
-
Labs: Labs Reviewed by me
--- NOTE | 2023-06-28 14:22 | CM ---
Chart reviewed and plan is to return to home when stable.
Plan; Home when stable.
[2023-06-28 15:48] VITALS: BP 152/83
[2023-06-28 16:11] VITALS: BP 136/63
[2023-06-28] MEDS: LOVENOX 40 MG SC (17:34)
[2023-06-28 19:13] LABS: Hepatitis C Antibody Negative (Negative)
--- NOTE | 2023-06-28 20:07 | PTCARENOTE ---
Patient consuming low fat diet. Reports worsening epigastric pain. Diet downgraded to cklears
[2023-06-28] MEDS: NSS (PRESERVATIVE FREE) IV (20:42)
[2023-06-28] MEDS: PROTONIX IV IV (20:43)
[2023-06-28 23:42] VITALS: BP 142/82
[2023-06-29 03:28] VITALS: BMI 34.7
[2023-06-29] MEDS: DILAUDID 0.5 MG IV ×6 (03:59→20:58)
[2023-06-29] MEDS: MIRALAX 17 GRAMS PO (07:38)
[2023-06-29] MEDS: SENOKOT-S 1 TABLET PO ×2 (07:38→20:47)
[2023-06-29] MEDS: ZOLOFT 100 MG PO (07:38)
[2023-06-29] MEDS: NSS (PRESERVATIVE FREE) 10 ML IV ×2 (07:39→20:48)
[2023-06-29] MEDS: PROTONIX IV 40 MG IV ×2 (07:39→20:47)
[2023-06-29 07:48] LABS: Hematocrit 40.8 % (39.0-52.0); Hemoglobin 13.8 g/dL (13.0-18.0); Mean Corp Hgb Conc. 33.8 g/dL (33.0-37.0); Mean Corpuscular Hgb 29.7 pg (27.0-31.0); Mean Corpuscular Volume 87.9 fL (80.0-94.0); Mean Platelet Volume 11.7 fL (7.4-10.4); Platelet Count 227 10^3/uL (130-400); Red Blood Cell Count 4.64 10^6/uL (4.70-6.10); Red Cell Dist. Width 13.3 % (11.5-14.5); White Blood Cell Count 14.9 10^3/uL (4.8-10.8)
[2023-06-29 08:02] VITALS: BP 141/86
[2023-06-29 09:19] LABS: ALT (SGPT) 16 U/L (0-50); AST (SGOT) 16 U/L (17-59); Albumin 3.7 g/dl (3.5-5.0); Alkaline Phosphatase 81 U/L (38-126); Blood Urea Nitrogen 8 mg/dl (9-20); Calcium 8.8 mg/dl (8.4-10.2); Carbon Dioxide 28 mmol/L (22-30); Chloride 99 mmol/L (98-107); Estimated Creatinine Clearance 121 ml/min; Glucose 107 mg/dl (70-99); Potassium 4.2 mmol/L (3.5-5.1); Sodium 134 mmol/L (135-145); Total Bilirubin 1.3 mg/dl (0.2-1.3); Total Protein 6.5 g/dl (6.3-8.2); eGFR > 60.00
--- NOTE | 2023-06-29 10:04 | W.PN.GI.CBS2 ---
Today's Communication / Plan
-
Full liquid diet. Re-assess pain. Consider repeat imaging tomorrow if ongoing abdominal pain. Montior LFT's.
Assessment / Plan
-
The pt is a 63-year-old male with past medical history of arthritis on chronic meloxicam, anxiety who presented with complaints of abdominal pain, found to have first episode of acute pancreatitis confirmed on CT imaging without abscess or necrosis.
US and MRI showing CBD distention and PD dilation without obvious stones. LFT's have remained normal. He continues with abdominal tenderness/pain after low fat diet.
Problem list:
-Pancreatitis, 1st episode, ?biliary etiology 2/2 passed stone
-abdominal pain
-leukocytosis
-GB polyp
-CBD and PD dilation
Recommendations:
-Etiology of pancreatitis unclear, possibly 2/2 passed stone v medication induced with chronic NSAID's v other biliary etiology v other. TG and calcium levels are normal.
---LFTs are normal but he continues with tenderness after advancing to low fat diet. Noted with CBD and PD dilation without obvious stones on MRI/MRCP
-Will advance diet to full liquid diet and if tolerates try to advance to low fat diet again later today
-Can stop IV fluids as tolerating liquids per pt request. If recurrent pain and not tolerating full liquid diet will resume at low volume.
-If he continues with abdominal pain to consider repeat imaging tomorrow
-Consider OP EUS/ERCP pending clinical course
-AVOID NSAIDS after discharge as previously recommended
-Add IgG4 for completeness of work-up
-Will need US abdomen in 6 months for follow-up of GB polyp
-Will follow
Subjective
Subjective
Date of Service: June 29, 2023
The pt was seen and examined at the bedside. He continues with some abdominal tenderness after low fat diet. He is back on liquid diet with some improvement. LFT's are normal.
Objective
Data Reviewed
Laboratory Data:
Laboratory Results
06/29/23 06:47
06/29/23 06:47
Laboratory Results
Phosphorus 3.8 mg/dl (2.5-4.5) 06/26/23 07:01
Magnesium 2.0 mg/dl (1.6-2.3) 06/29/23 06:47
Total Bilirubin 1.3 mg/dl (0.2-1.3) 06/29/23 06:47
AST 16 U/L (17-59) L 06/29/23 06:47
ALT 16 U/L (0-50) 06/29/23 06:47
Alkaline Phosphatase 81 U/L (38-126) 06/29/23 06:47
Lipase 455 U/L (23-300) H 06/27/23 07:03
Vital Signs and I&O:
Vital Signs
Temp Pulse Resp BP Pulse Ox
98.8 F 86 16 141/86 96
06/29/23 08:02 06/29/23 08:02 06/29/23 08:02 06/29/23 08:02 06/29/23 08:02
I&O
06/28/23 06/29/23 06/30/23
06:59 06:59 06:59
Intake Total 3100 / 3100 1964
Balance 3100 / 3100 1964
Physical Exam
Physical Exam
HEENT: Anicteric
GI: Soft, Distended and Tender (upper abdominal tenderness with palpation)
Extremities: No Edema
Neuro: Non Focal
--- NOTE | 2023-06-29 10:19 | W.PN.GI.CBS2 ---
Today's Communication / Plan
-
FLD, can advance to low fat diet (dinner) if he tolerates FLD for lunch, GI s/o.
Assessment / Plan
-
The pt is a 63-year-old male with past medical history of arthritis on chronic meloxicam, anxiety who presented with complaints of abdominal pain, found to have first episode of acute pancreatitis.
Etiology is somewhat unclear, although US showed sludge suggestive of likely biliary etiology (microlithiasis from sludge). Transient bili elevation but normal now, alk phos normal. Pain improved, tolerated CLD this am, tried low fat diet last
night which he didn't tolerate well even though he didn't have pain but felt somewhat nauseous. Will advance to FLD and if tolerates can advance to low fat diet, pt is willing to try. Will need f/u with me after d/c home. GI will s/o, pls call
with questions.
Total Time Spent with Patient (in minutes): 35
Subjective
Subjective
Date of Service: June 29, 2023
Feels ok, denies abdo pain, tolerated CLD this am
Objective
Data Reviewed
Laboratory Data:
Laboratory Results
06/29/23 06:47
06/29/23 06:47
Laboratory Results
Phosphorus 3.8 mg/dl (2.5-4.5) 06/26/23 07:01
Magnesium 2.0 mg/dl (1.6-2.3) 06/29/23 06:47
Total Bilirubin 1.3 mg/dl (0.2-1.3) 06/29/23 06:47
AST 16 U/L (17-59) L 06/29/23 06:47
ALT 16 U/L (0-50) 06/29/23 06:47
Alkaline Phosphatase 81 U/L (38-126) 06/29/23 06:47
Lipase 455 U/L (23-300) H 06/27/23 07:03
Vital Signs and I&O:
Vital Signs
Temp Pulse Resp BP Pulse Ox
98.8 F 86 16 141/86 96
06/29/23 08:02 06/29/23 08:02 06/29/23 08:02 06/29/23 08:02 06/29/23 08:02
I&O
06/28/23 06/29/23 06/30/23
06:59 06:59 06:59
Intake Total 3100 / 3100 1964
Balance 3100 / 3100 1964
--- NOTE | 2023-06-29 12:14 | PN.CDI ---
CDI
- -
CDI:
Physician Documentation Request
Admit Date: 06/25/23 19:47
Dear Doctor Titus,
Patient admitted with pancreatitis.
Laboratory Tests
06/26/23 06/27/23 06/28/23 06/29/23
07:01 07:03 07:21 06:47
Sodium 134 L 134 L 132 L 134 L
Based on the above, could you clarify in the progress notes, the appropriate diagnosis, if significant, that supports the above abnormalities and additional evaluation, monitoring and/or treatment rendered:
Hyponatremia
Abnormal lab value insignificant
Other
Use of terms such as suspected, likely, concern for, or probable (associated with a specific diagnosis that is being evaluated, monitored, or treated as if it exists) are acceptable and can be coded in the inpatient setting, when documented at the
time of discharge.
Thank you,
Tiera Olivas RN, BSN
CDI Specialist
Available via [place] text
Please use your independent medical judgment in providing your response.
--- NOTE | 2023-06-29 12:20 | W.PN.HOSP.TC ---
Today's Communication/Plan
-
FLD , advance as tolerated to low fat diet for the dinner .
Assessment / Plan
Assessment / Plan
IMPRESSION:
63 male history of arthritis on meloxicam 20 years anxiety sertraline reports presents with acute progressive abdomen pain epigastric less than 1 day duration. Found to have pancreatitis, lipase greater than [address] abdomen pelvis
which also noted normal gallbladder. LFTs WNL.
PLAN:
#Acute pancreatitis unclear etiology possibly passed sludge vs stone vs NSAID induced
Ultrasound of biliary system was read as 2 polyps in the gallbladder and biliary sludge and dilatation of the common bile duct
Abdominal MRI shows acute interstitial edematous pancreatitis w/o overt complication,CBD dilatation w/o overt stricture/filling defect. The gallbladder was unremarkable on abdominal MRI ? polyps were stones which were passed .
GI input noted from today - rec advancing diet as tolerated;signed off
-avoid NSAIDs after discharge
#Anxiety
cont home Sertraline
#HTN likely 2/2 pain
Mostly under goal now
consider antihypertensive if BP remains elevated despite pain control
#Arthritis
cont pain control with opiates as above
avoid further NSAID use for now
#Leukocytosis
possibly stress reactive
monitor off abx for now
trend WBC
dvt ppx lovenox
gi ppx Protonix
Full Code
Anticipated Discharge: Within 24 hours
Subjective/Interval History
-
Date of Service: June 29, 2023
Did not tolerate a low-fat diet yesterday so back on full liquid diet today. He couldn't tolerate because of abdominal pain and discomfort. No nausea vomiting.
No fever chills.
Objective Data
-
Labs:
Laboratory Results
06/29/23
06:47
WBC 14.9 H
Hgb 13.8
Hct 40.8
Plt Count 227
Sodium 134 L
Potassium 4.2
Chloride 99
Carbon Dioxide 28
BUN 8 L
Creatinine 0.8
Glucose 107 H
Calcium 8.8
Total Bilirubin 1.3
AST 16 L
ALT 16
Alkaline Phosphatase 81
Vital Signs:
Vital Signs
Temp Pulse Resp BP Pulse Ox
98.8 F 86 16 141/86 96
06/29/23 08:02 06/29/23 08:02 06/29/23 08:02 06/29/23 08:02 06/29/23 08:02
I&O
06/28/23 06/29/23 06/30/23
06:59 06:59 06:59
Intake Total 3100 / 3100 1964
Balance 3100 / 3100 1964
Review of Systems
-
Constitutional: Denies Fever
Respiratory: Denies Trouble Breathing
Cardiac: Denies Chest Pain
Neuro: Denies Dizzy or Headache
Physical Exam
-
General: No Apparent Distress
HEENT: Moist Mucous Membranes
Respiratory: Clear to Auscultation
Cardiac: Regular Rhythm and S1/S2
GI: Soft, Nontender (mild discomfort in epigastric), Nondistended and Normal Bowel Sounds
Neuro: AO x 3
Data Reviewed
-
Labs: Labs Reviewed by me
[2023-06-29 15:33] VITALS: BP 125/76
--- NOTE | 2023-06-29 16:05 | CM ---
Chart reviewed and plan is to home with spouse when stable.
Plan; Home when stable.
[2023-06-29] MEDS: LOVENOX 40 MG SC (17:37)
[2023-06-29 22:58] VITALS: BP 136/65
[2023-06-30] MEDS: DILAUDID 0.5 MG IV ×2 (00:17→06:15)
[2023-06-30 06:00] VITALS: BMI 34.7
[2023-06-30 06:57] LABS: Hematocrit 37.3 % (39.0-52.0); Hemoglobin 12.8 g/dL (13.0-18.0); Mean Corp Hgb Conc. 34.3 g/dL (33.0-37.0); Mean Corpuscular Hgb 29.4 pg (27.0-31.0); Mean Corpuscular Volume 85.6 fL (80.0-94.0); Platelet Count 235 10^3/uL (130-400); Red Blood Cell Count 4.36 10^6/uL (4.70-6.10); Red Cell Dist. Width 13.3 % (11.5-14.5); White Blood Cell Count 13.9 10^3/uL (4.8-10.8)
[2023-06-30 07:22] LABS: Blood Urea Nitrogen 11 mg/dl (9-20); Carbon Dioxide 29 mmol/L (22-30); Chloride 99 mmol/L (98-107); Estimated Creatinine Clearance 121 ml/min; Glucose 112 mg/dl (70-99); Potassium 4.1 mmol/L (3.5-5.1); Sodium 133 mmol/L (135-145); eGFR > 60.00
[2023-06-30 08:00] VITALS: BP 127/75
[2023-06-30] MEDS: ZOLOFT 100 MG PO (08:47)
[2023-06-30] MEDS: PROTONIX IV 40 MG IV (08:48)
[2023-06-30] MEDS: MIRALAX 17 GRAMS PO (08:48)
[2023-06-30] MEDS: SENOKOT-S 1 TABLET PO (08:48)
[2023-06-30] MEDS: NSS (PRESERVATIVE FREE) 10 ML IV (08:49)
--- NOTE | 2023-06-30 12:34 | W.PN.HOSP.TC ---
Addendum entered and electronically signed by Walter Qureshi MD 07/02/23 12:15:
Na was mildly low suggestive of hyponatremia
Original Note:
Today's Communication/Plan
-
dc home
Assessment / Plan
Assessment / Plan
IMPRESSION:
63 male history of arthritis on meloxicam 20 years anxiety sertraline reports presents with acute progressive abdomen pain epigastric less than 1 day duration. Found to have pancreatitis, lipase greater than [address] abdomen pelvis
which also noted normal gallbladder. LFTs WNL.
PLAN:
#Acute pancreatitis unclear etiology possibly passed sludge vs stone vs NSAID induced
Ultrasound of biliary system was read as 2 polyps in the gallbladder and biliary sludge and dilatation of the common bile duct
Abdominal MRI shows acute interstitial edematous pancreatitis w/o overt complication,CBD dilatation w/o overt stricture/filling defect. The gallbladder was unremarkable on abdominal MRI ? polyps were stones which were passed .
GI input noted from today - signed off. and now on LFD tolerating
-avoid NSAIDs after discharge
#Anxiety
cont home Sertraline
#HTN likely 2/2 pain
Mostly under goal now
consider antihypertensive if BP remains elevated despite pain control
#Arthritis
cont pain control with opiates as above
avoid further NSAID use for now
#Leukocytosis
possibly stress reactive
monitor off abx for now
trend WBC
dvt ppx lovenox
gi ppx Protonix
Full Code
More than 30 minutes spent in discharge including
Final examination of the patient
Summarizing hospital stay
Instructions for continuing care to all relevant caregivers
Preparation of discharge records, prescriptions, and referral forms
Total time spent (in minutes): 41
Anticipated Discharge: Today
Subjective/Interval History
-
Date of Service: June 30, 2023
denies any new complaints at present
tolerating LFD
Objective Data
-
Labs:
Laboratory Results
06/30/23
06:33
WBC 13.9 H
Hgb 12.8 L
Hct 37.3 L
Plt Count 235
Sodium 133 L
Potassium 4.1
Chloride 99
Carbon Dioxide 29
BUN 11
Creatinine 0.8
Glucose 112 H
Calcium 9.0
Vital Signs:
Vital Signs
Temp Pulse Resp BP Pulse Ox
98.6 F 78 20 127/75 95
06/30/23 08:00 06/30/23 08:00 06/30/23 08:00 06/30/23 08:00 06/30/23 08:00
I&O
06/29/23 06/30/23 07/01/23
06:59 06:59 06:59
Intake Total 1964 480 / 480
Balance 1964 480 / 480
Physical Exam
-
General: No Apparent Distress
HEENT: Normocephalic and Atraumatic
Respiratory: Negative Wheezes
Cardiac: Regular Rhythm
GI: Soft
Genito-urinary: No Costovertebral Tender
Musculoskeletal: No Edema
Neuro: AO x 3
Hematologic / Lymphatic: No Lymphadenopathy
Psych: Calm
Data Reviewed
-
Total Time Spent with Patient (in minutes): 41
Labs: Labs Reviewed by me
--- NOTE | 2023-06-30 12:38 | W.DS.TRANS ---
DC Summary - Court Bailiff
-
Discharge Instructions:
Discharge Diagnosis/Procedures acute pancreatitis
Diet Low Fat
Activity As tolerated
Instructions:
Stand-Alone Forms:
Changes to Home Medications: Yes
Discharge Medications:
DC Medications w/original date entered in [facility]
sertraline 100 mg tablet 100 mg PO DAILY Mental Health/Anxiety 06/25/23
oxycodone 5 mg tablet 5 mg PO Q6H PRN Pain #10 tabs 06/30/23
polyethylene glycol 3350 17 gram oral powder packet (HealthyLax) 17 g PO DAILY #60 ea 06/30/23
sennosides 8.6 mg-docusate sodium 50 mg tablet (Stool Softener-Stimulant Laxative) 1 tab PO BID #60 tabs 06/30/23
Home Medication Changes
stop meloxicam
Pending Results: No
Total time spent discharging patient (in min): 41
[2023-06-30 14:10] VITALS: BP 119/76
--- NOTE | 2023-06-30 14:41 | CM ---
Home no needs.
Plan; Home no needs.
[2023-07-01 01:06] LABS: IgG Subclass 4 20 mg/dL (1-123)
== END 2023-06-30 14:58 | disposition home or self-care (01) | DRG 439 ==
LOC: 4 WEST ACU 19:47
PROVIDERS: Emergency Medicine; Physician Assistant; ADMITTING PHYSICIAN Internal Medicine; ATTENDING PHYSICIAN Internal Medicine; CONSULT PHYSICIAN Internal Medicine Gastroenterology; EMERGENCY PHYSICIAN Student in an Organized Health Care Education/Training Program; FAMILY PHYSICIAN Family Medicine
DX: K85.10 Biliary acute pancreatitis without necrosis or infection (principal); E87.1 Hypo-osmolality and hyponatremia; Z87.891 Personal history of nicotine dependence; F41.9 Anxiety disorder, unspecified; I10 Essential (primary) hypertension; M19.90 Unspecified osteoarthritis, unspecified site; K82.4 Cholesterolosis of gallbladder; K59.00 Constipation, unspecified; K52.9 Noninfective gastroenteritis and colitis, unspecified
CPT/HCPCS: 74174; 74183; 76700; 80048; 80053; 80061; 80076; 82248; 82787; 83690; 83735; 84100; 84484; 85025; 85027; 86803; 93005; 96361; 96374; 96375; 96376; 99285; A9575; Q9967

== ENCOUNTER → 2023-09-07 12:49 | Outpatient (REF) | payer OTHER, SELFPAY | LOC: PAVMRI 12:49 | PROVIDERS: ATTENDING PHYSICIAN Internal Medicine Gastroenterology; FAMILY PHYSICIAN Family Medicine | DX: K85.80 Other acute pancreatitis without necrosis or infection (principal) | CPT/HCPCS: 74183; A9575 ==

== ENCOUNTER 2024-10-08 23:59 | Inpatient (IN) | payer OTHER, SELFPAY ==
[2024-10-08 21:20] VITALS: BP 136/80
--- NOTE | 2024-10-08 21:39 | ED.GENMED ---
History of Present Illness
General
Chief Complaint: Abdominal Pain
Time Seen by Provider: 10/08/24 21:37
Nursing documentation reviewed up to this point in time: agreed with
History of Present Illness
History of Present Illness:
64-year-old male presents to the ER for evaluation of severe mid abdominal discomfort which started 2 hours prior to arrival. Patient states that he had Pasta carbonara for dinner. He had onset of pain which is severe and associated with nausea
and vomiting. He states that this pain is the same as his prior episode of pancreatitis 2 years ago. He had been feeling well prior to onset of symptoms with dinner. No reported recent fevers or chills. No prior abdominal surgery. His prior
episode of pancreatitis was felt to be related to gallstones but he was not recommended to have cholecystectomy. No chest pain. No cough or cold symptoms. He was unable to take any pain relievers prior to arrival.
Review of Systems
Review of Systems
Allergies reviewed?: Yes
Phy Exam
Physical Exam
Physical Exam:
Patient is awake, alert, moaning continuously throughout interview and exam, preferring to be standing and bent over leaning on the bed during interview, mucous membranes tacky, sclera anicteric, conjunctiva pink, heart regular rate and rhythm
without murmurs or ectopy, lungs are clear to auscultation without wheezes rales or rhonchi, abdomen is soft with diffuse pain on palpation, greater across the upper abdomen, diffuse guarding, no palpable masses, 2+ femoral and DP pulses present
symmetric, intact sensation to light touch symmetric bilateral lower extremities, 2+ radial pulses symmetric, GCS is 15
Course
Orders/Labs/Results
Orders:
Orders
10/08/24 21:31
Electrocardiogram (*1) Urgent
Reason for Study: Chest Pain
EKG- Treatment ONCE
10/08/24 21:37
HYDROmorphone [Dilaudid] 1 mg IV NOW STA
Ondansetron Injectable [Zofran] 4 mg IV NOW STA
10/08/24 21:38
CT Abd/pelvis W Iv Cont Urgent
Comment:
Reason For Exam: pancreatitis
10/08/24 21:39
0.9% Sodium Chloride 1000 ml [Nss] 1,000 ml IV BOLUS
10/08/24 22:02
Complete Blood Count/With Diff Urgent
Comprehensive Metabolic Panel Urgent
Lipase Urgent
Magnesium Urgent
10/08/24 22:21
HYDROmorphone [Dilaudid] 1 mg IV NOW STA
HYDROmorphone [Dilaudid] 1 mg IV NOW STA
10/08/24 22:33
Ketorolac [Toradol] 15 mg IV NOW STA
10/08/24 22:44
HYDROmorphone [Dilaudid] 0.5 mg IV NOW STA
Abnormal Lab Results
10/08/24
22:02
WBC 12.0 H 10^3/uL
(4.8-10.8)
MPV 10.9 H fL
(7.4-10.4)
Abs Immat Gran (auto) 0.1 H 10^3/uL
(0-0.05)
Absolute Neuts (auto) 6.7 H 10^3/uL
(1.4-6.5)
Absolute Lymphs (auto) 4.1 H 10^3/uL
(1.2-3.4)
Absolute Monos (auto) 0.9 H 10^3/uL
(0.1-0.6)
BUN 24 H mg/dl
(9-20)
Glucose 165 H mg/dl
(70-99)
AST 63 H U/L
(17-59)
Lipase > 4000 H* U/L
(23-300)
10/08/24 22:02
10/08/24 22:02
White blood count slightly elevated. Hemoglobin normal. Kidney function preserved.
Vital Signs
Initial and Last Documented VS:
Initial Vital Signs
Pulse Resp Pulse Ox
84 30 100
10/08/24 21:17 10/08/24 21:17 10/08/24 21:17
Last Documented Vital Signs
Pulse Resp BP Pulse Ox
61 24 158/95 98
10/08/24 22:50 10/08/24 22:50 10/08/24 22:45 10/08/24 22:50
MDM/Problems Addressed
Differential Diagnosis Includes:
Differential diagnosis to consider pancreatitis, choledocholithiasis, cholecystitis, gastritis, gastric perforation, renal colic along with other etiologies considered
*Radiology
Radiology exam reviewed: preliminary read by ED provider (I independently viewed and interpreted CT of the abdomen and pelvis showing diffuse edema around the pancreas, gallbladder is enlarged without pericholecystic fluid, I do not see any
obstructing gallstones. Awaiting radiology interpretation of same)
*Pulse Oximetry
SaO2: 100
Oxygen Mode of Delivery: Room air
Patient hypoxic: no
*EKG
Interpreted by ED Provider?: Yes (I independently viewed and interpreted twelve-lead EKG showing normal sinus rhythm, no ectopy, leftward axis, rate 71, no ST elevation, this is a nonspecific EKG, no evidence for acute ischemia)
*Lapel Baster Interpretation
Rate: normal (I independently viewed and interpreted rhythm strip showing normal sinus rhythm, no ectopy)
*Critical Care Note
Total Time (30-74mins, 75-104mins- exclusive of procedures): Not Applicable
Update Note
Update Note:
Patient required 2 mg of Dilaudid and still complaining of severe pain. Toradol and half milligram more of Dilaudid are ordered. Vital signs stable. I reviewed labs so far with patient and present at bedside. Awaiting CT and lipase.
2330-lipase is greater than 4000. Full patient presentation reviewed with hospitalist who accepts patient for admission for further treatment of acute pancreatitis.
ED Attending Note
-
Portions of this chart may have been created with voice recognition software.� Occasional wrong word or��sound alike� substitutions may have occurred due to the inherent limitations of voice recognition software.
Discharge Plan
Departure
Patient Disposition: Admit
Date of Disposition: 10/08/24
Time of Disposition: 23:15
Presentation/result/management discussed w/ accepting MD/DO: Hospitalist
Discharge Problem:
Acute pancreatitis
Prescriptions:
No Action
sertraline 100 mg tablet
100 mg PO DAILY
acetaminophen [Tylenol] 325 mg Tablet
650 mg PO Q6H PRN (Reason: pain)
meloxicam 15 mg Tablet
15 mg PO DAILY
Referrals:
UNKNOWN - PT DOES,NOT KNOW [Family Provider]
Interventions
Interventions:
*Risk Screen - Suicide Last Done: 10/08/24 22:07
*General Assessment Last Done: 10/08/24 22:08
*Neglect/Abuse Screening Last Done: 10/08/24 22:07
*ED- Fall Risk Assessment Last Done: 10/08/24 22:08
FW-Qhbtyo-Wiopaokqsm Assessment Last Done: 10/08/24 22:07
Discharge Date and Time
Print Language: ANGOLAN
[2024-10-08] MEDS: DILAUDID 1 MG IV ×2 (21:59→22:25)
[2024-10-08] MEDS: ZOFRAN 4 MG IV (21:59)
[2024-10-08] MEDS: NSS 1000 IV (22:03)
[2024-10-08 22:06] VITALS: BMI 31.4
[2024-10-08 22:10] LABS: Hematocrit 46.2 % (39.0-52.0); Hemoglobin 15.9 g/dL (13.0-18.0); Mean Corp Hgb Conc. 34.4 g/dL (33.0-37.0); Mean Corpuscular Volume 86.2 fL (80.0-94.0); Nucleated Red Blood Cells % 0 % (-); Platelet Count 262 10^3/uL (130-400); Red Cell Dist. Width 13.5 % (11.5-14.5)
[2024-10-08] MEDS: DILAUDID IV (22:22)
[2024-10-08 22:30] LABS: ALT (SGPT) 40 U/L (0-50); AST (SGOT) 63 U/L (17-59); Albumin 4.8 g/dl (3.5-5.0); Alkaline Phosphatase 86 U/L (38-126); Blood Urea Nitrogen 24 mg/dl (9-20); Calcium 10.1 mg/dl (8.4-10.2); Carbon Dioxide 26 mmol/L (22-30); Chloride 105 mmol/L (98-107); Estimated Creatinine Clearance 107 ml/min; Glucose 165 mg/dl (70-99); Magnesium 2.1 mg/dl (1.6-2.3); Potassium 4.4 mmol/L (3.5-5.1); Sodium 140 mmol/L (135-145); Total Protein 7.8 g/dl (6.3-8.2); eGFR > 60.00
[2024-10-08] MEDS: TORADOL 15 MG IV (22:39)
[2024-10-08 22:45] VITALS: BP 158/95
[2024-10-08 23:13] LABS: Lipase > 4000 U/L (23-300)
[2024-10-08] MEDS: DILAUDID 0.5 MG IV (23:17)
--- NOTE | 2024-10-08 23:18 | HPS.HSE ---
Family Physician
-
Family Physician: NOT KNOW UNKNOWN - PT DOES
Chief Complaint
-
Abdominal Pain
History of Present Illness
Patient is a 64 y/o male past medical history of osteoarthritis, anxiety and prior episode of pancreatitis who presents with abdominal pain. Patient reports acute onset of epigastric abdominal pain around 6pm this evening. He reports he had a
milkshake earlier in the day and then had pasta with carbonara sauce for dinner. Patient reports pain is worse in the epigastric region but goes throughout the abdomen. He denies any radiation of the pain. He reports associated nausea and
vomiting, but denies hematemesis. He denies diarrhea. He reports prior similar episode related to pancreatitis but states this episode is worse.
Medical History
Past Medical History
Past Medical History: Reports Other
Additional Past Medical History:
Anxiety
Pancreatitis
Osteoarthritis
Past Surgical History: Reports Other
Additional Past Surgical History:
Right Rotator Cuff Repair
Leg Fracture Repair
Social History
Tobacco: Other (Former cigarette smoker, quit about 3 years ago. Currently vaging)
Alcohol: None
Family History
Family History: Not pertinent
Allergies / Home Medications
Allergies reflects when Allergies were last updated in [facility].
Home Medications with original date entered in [facility]
Allergy/Medication List:
Allergies
Allergy/AdvReac Type Severity Reaction Status Date / Time
No Known Allergies Allergy Verified 06/25/23 14:49
Home Medications
sertraline 100 mg tablet 100 mg PO DAILY Mental Health/Anxiety 06/25/23
acetaminophen 325 mg tablet (Tylenol) 650 mg PO Q6H PRN pain 10/08/24
meloxicam 15 mg tablet 15 mg PO DAILY 10/08/24
Review of Systems
-
A 12 point ROS was completed and negative except as noted: Yes
Constitutional: Denies Fever or Chills
Respiratory: Denies Cough or Trouble Breathing
Cardiac: Denies Chest Pain or Palpitations
Abdomen/GI: Reports See HPI
Physical Exam
Vital Signs
Vital Signs
Pulse Resp BP Pulse Ox
61 24 158/95 98
10/08/24 22:50 10/08/24 22:50 10/08/24 22:45 10/08/24 22:50
Physical Exam
General: Well Developed, Well Nourished and Pain
HEENT: Anicteric and Moist mucous membranes
Respiratory: Clear and Non Labored Respirations
Cardiac: S1/S2 and Regular Rhythm
GI: Soft and Tender (Epigastric )
Rectal: Deferred by Provider
Musculoskeletal: No Clubbing, No Cyanosis and No Edema
Skin: Warm and Dry
Neuro: Awake, Alert, Oriented and Nonfocal/grossly intact
Psych: Calm
Laboratory Results
-
10/08/24 22:02
10/08/24 22:02
Laboratory Results
Total Bilirubin 0.9 mg/dl (0.2-1.3) 10/08/24 22:02
AST 63 U/L (17-59) H 10/08/24 22:02
ALT 40 U/L (0-50) 10/08/24 22:02
Alkaline Phosphatase 86 U/L (38-126) 10/08/24 22:02
Lipase > 4000 U/L (23-300) H* 10/08/24 22:02
Data Reviewed
-
Lab Data: Labs Reviewed by me
Impression/Plan
-
Acute Pancreatitis, unclear cause
-Consult GI
-Continue NPO/IVFs
-Continue Dilaudid prn pain
-Add Protonix Daily
-Trend LFTs and Lipase level
Anxiety
-Continue sertraline
Osteoarthritis
-Hold meloxicam
DVT Proph: Lovenox
Code Status: Full Code
[2024-10-08] MEDS: VALIUM INJECTION 2 MG IV (23:53)
[2024-10-08] MEDS: PROTONIX IV 40 MG IV (23:53)
--- NOTE | 2024-10-09 00:03 | W.PN.UPDATE ---
Update Note
Progress Note Update
Patient seen with MIKEL. I agree with the findings on history and physical. I concur with assessment and plan unless stated otherwise.
Briefly, this is a 64-year-old who has a past medical history significant for prior episode of pancreatitis, history of chronic osteoarthritis on meloxicam daily, anxiety presenting with acute episode of epigastric discomfort. Spouse related to
story where patient did have 1 episode of nausea and vomiting without any improvement in his symptom. Denied any diarrhea. There has been no fevers or chills. Chest pain is without any radiation. He denies any chest discomfort. Despite
analgesics of 2.5 mg Dilaudid in the emergency department he was still complaining of abdominal pain.
During his last admission he had a lipase of over 4000 with transient rise in total bilirubin but normal transaminases. He had a MRI of the abdomen which showed no acute findings. The concern was possible cholelithiasis with biliary sludge.
However on repeat examination there was no stones and patient opted not to have cholecystectomy. He denies alcohol use. He denies any GLP agonist. He denies any recreational drugs.
Has history of peptic ulcer disease over 20 years ago. He is currently on meloxicam daily. Denies any melena or hematochezia.
In the emergency department he was afebrile, blood pressure was 160/90 with a pulse of 61 satting 98%. ECG shows a normal sinus rhythm without any acute ST or T wave changes. CBC shows a white count of 12 but otherwise unremarkable. His
electrolytes were normal. BUN/creatinine were normal. LFTs including bilirubin were normal. Lipase was over [address] A/P : Moderate peripancreatic inflammatory fat stranding and fluid. Fluid extends down the root of the mesentery. No hemorrhage necrosis or pseudocyst. The gallbladder is moderately distended with gallbladder wall thickening and faint
pericholecystic fat stranding at the rupali hepatis without radiopaque gallstones. Slightly increased intrahepatic and extrahepatic biliary ductal dilation. Common duct measures 11 mm with radiopaque ductal stones. Consider concomitant acute
cholecystitis and biliary obstruction with a gallstone
Assessment plan
Acute pancreatitis -recurrent episode of pancreatitis #2 without clear etiology. Last evaluation was inconclusive and suspicion remains for gallstone pancreatitis. Cannot rule out acute cholecystis entirely
- Admit to MedSurg
- N.p.o. for now
- LR at 150
- As needed Dilaudid and antiemetics
- IV PPI daily, IV famotidine at bedtime
- Trend LFTs and lipase
- D/W surgery, getting RUQ u/s
- started on unasyn pending RUQ
- held off mrcp given findings above and prior negative imaging.
- additional imaging per GI
- GI consultation
DVT PPX - lovenox sq
Code status - Full Code
[2024-10-09] MEDS: OFIRMEV 100 IV (00:21)
[2024-10-09] MEDS: UNASYN IV ×5 (00:41→22:59)
[2024-10-09] MEDS: DILAUDID 1 MG IV ×5 (01:49→15:16)
[2024-10-09 02:02] VITALS: BP 169/103; BMI 34.4
[2024-10-09] MEDS: LR 1000 IV ×4 (02:03→21:23)
--- NOTE | 2024-10-09 02:20 | PTCARENOTE ---
Addendum entered by Lorie Rodriguez RN 10/09/24 03:24:
Patient is sleeping at this time
Addendum entered by Lorie Rodriguez RN 10/09/24 02:40:
Patient 6/10 abdominal pain/ can't get comfortable . Notified MIKEL Chan of patient's pain. See MAR for new orders
Original Note:
Rec'd patient from ER, 10/10 abdominal pain. ordered dilaudid 1mg IV given
[2024-10-09] MEDS: DILAUDID 0.5 MG IV (02:49)
[2024-10-09] MEDS: ULTRAM 50 MG PO (02:49)
[2024-10-09] MEDS: TORADOL 15 MG IV (04:55)
[2024-10-09] MEDS: ZOFRAN 4 MG IV ×2 (05:04→16:44)
[2024-10-09 07:31] LABS: Hematocrit 47.7 % (39.0-52.0); Hemoglobin 15.9 g/dL (13.0-18.0); Mean Corp Hgb Conc. 33.3 g/dL (33.0-37.0); Mean Corpuscular Volume 88.3 fL (80.0-94.0); Platelet Count 244 10^3/uL (130-400); Red Cell Dist. Width 13.5 % (11.5-14.5)
[2024-10-09 07:32] VITALS: BP 189/109
--- NOTE | 2024-10-09 07:51 | W.PN.HOSP.TC ---
Today's Communication/Plan
-
Added Toradol.
Continue p.o.
IV fluid
Assessment / Plan
Assessment / Plan
Impression:
Patient is a 64 y/o male past medical history of osteoarthritis, anxiety and prior episode of pancreatitis who presents with abdominal pain, he past medical history significant for prior episode of pancreatitis of unclear etiology, diabetes noted to
be elevated above 4000.
CT A/P : Moderate peripancreatic inflammatory fat stranding and fluid. Fluid extends down the root of the mesentery. No hemorrhage necrosis or pseudocyst. The gallbladder is moderately distended with gallbladder wall thickening and faint
pericholecystic fat stranding at the rupali hepatis without radiopaque gallstones. Slightly increased intrahepatic and extrahepatic biliary ductal dilation. Common duct measures 11 mm with radiopaque ductal stones. Consider concomitant acute
cholecystitis and biliary obstruction with a gallstone.
Patient admitted under hospitalist service, consult for gastroenterology/surgery.
Assessment/plan:
Acute pancreatitis -recurrent episode of pancreatitis #2 without clear etiology. Last evaluation was inconclusive and suspicion remains for gallstone pancreatitis. Cannot rule out acute cholecystis entirely
- Admit to MedSurg
- N.p.o. for now
- LR at 150
- As needed Dilaudid and Toradol.
- IV PPI daily, IV famotidine at bedtime
- Trend LFTs and lipase
- started on unasyn.
- US RUQ shows:
Preliminary report provided by [facility].
Findings suggesting adenomyomatosis of the gallbladder, with mild gallbladder wall thickening. No evidence for gallstones.
Dilated superior aspect of the common bile duct, tapering to normal caliber within the pancreatic head. No sonographic evidence for bile duct calculus.
The pancreas is unable to be adequately visualized.
Abdominal aorta is unable to be visualized, but has normal caliber on recent CT scan
- GI consultation/ Surgery consult.
10/09
added toradol to Dilaudid.
Follow GI and surgery recommendations.
CODE STATUS: Full code
DVT prophylaxis: Lovenox
Diet: NPO
Disposition: Pain control
Total time spent on today's encounter was 65 minutes which included time spent in counseling the patient/family regarding diagnosis and treatment plan as listed above, goals of care, and symptom management. Case was discussed with nursing staff,
specialists, and care coordinators/case management. All labs and imaging personally reviewed by me. Remainder the time spent in detailed review of previous records, lab data, imaging, and other medical provider documentation.
Anticipated Discharge: 24 - 48 hours
Subjective/Interval History
-
Date of Service: October 09, 2024
Patient seen and examined at bedside, denies any chest pain, mild shortness of breath, still with sever abdominal pain,added Toradol.
Objective Data
-
Labs:
Laboratory Results
10/08/24 10/09/24
22:02 07:06
WBC 12.0 H 14.4 H
Hgb 15.9 15.9
Hct 46.2 47.7
Plt Count 262 244
Sodium 140 Pending
Potassium 4.4 Pending
Chloride 105 Pending
Carbon Dioxide 26 Pending
BUN 24 H Pending
Creatinine 1.0 Pending
Glucose 165 H Pending
Calcium 10.1 Pending
Total Bilirubin 0.9 Pending
AST 63 H Pending
ALT 40 Pending
Alkaline Phosphatase 86 Pending
Vital Signs:
Vital Signs
Temp Pulse Resp BP Pulse Ox
98.0 F 66 20 189/109 100
10/09/24 07:32 10/09/24 07:32 10/09/24 07:32 10/09/24 07:32 10/09/24 07:32
I&O
10/08/24 10/09/24 10/10/24
06:59 06:59 06:59
Intake Total 1000 / 1000
Balance 1000 / 1000
Physical Exam
-
General: Well Developed, Well Nourished, No Apparent Distress and Comfortable
HEENT: Normocephalic, Atraumatic, Moist Mucous Membranes, No Ptosis, PERRLA and Nose Appears Normal
Respiratory: Rales, Rhonchi and Non Labored Respirations
Cardiac: Regular Rhythm and S1/S2
Breast: Deferred by me
GI: Tender
Genito-urinary: No Costovertebral Tender
Musculoskeletal: No Clubbing, No Cyanosis and No Edema
Skin: Warm
Neuro: Awake, Alert, Oriented, AO x 3 and No Motor Deficits
Psych: Calm
Data Reviewed
-
Diagnostic Radiology: Image personally visualized and interpreted and Report Reviewed by me
CT Scan: Image personally visualized and interpreted and Report Reviewed by me
Ultrasound: Image personally visualized and interpreted and Report Reviewed by me
MRI: Image personally visualized and interpreted and Report Reviewed by me
Medical Tests (Nuc Med, Echo etc): Image personally visualized and interpreted and Report Reviewed by me
Labs: Labs Reviewed by me
Old Records: Reviewed
[2024-10-09 07:54] LABS: AST (SGOT) 45 U/L (17-59); Albumin 4.6 g/dl (3.5-5.0); Alkaline Phosphatase 85 U/L (38-126); Blood Urea Nitrogen 21 mg/dl (9-20); Calcium 9.3 mg/dl (8.4-10.2); Carbon Dioxide 27 mmol/L (22-30); Chloride 104 mmol/L (98-107); Estimated Creatinine Clearance 109 ml/min; Glucose 167 mg/dl (70-99); Magnesium 2.0 mg/dl (1.6-2.3); Sodium 141 mmol/L (135-145); Total Protein 7.5 g/dl (6.3-8.2); eGFR > 60.00
[2024-10-09] MEDS: PROTONIX IV 40 MG IV (07:58)
[2024-10-09] MEDS: NSS (PRESERVATIVE FREE) 10 ML IV (07:58)
[2024-10-09 08:04] LABS: ALT (SGPT) 55 U/L (0-50); Potassium 4.7 mmol/L (3.5-5.1)
[2024-10-09] MEDS: ZOLOFT PO (08:07)
[2024-10-09 09:57] LABS: Triglycerides 52 mg/dl (10-149)
[2024-10-09] MEDS: TORADOL 30 MG IV ×3 (10:33→22:57)
[2024-10-09 10:48] LABS: Lipase > 4000 U/L (23-300)
--- NOTE | 2024-10-09 11:09 | CM ---
Reviewed the chart notes and spoke with the patient at the bedside. The patient resides with his spouse in a two story home with three steps to enter. The patient reports no DME/VN/SNF in the past. The patient confirmed his pharmacy of choice [facility]. CM continues to be available to patient/family and is monitoring medical plan for needs at discharge.
Plan: Discharge plans will depend on the patient's progress.
--- NOTE | 2024-10-09 11:30 | CON.GS ---
Addendum entered and electronically signed by Al Mayorga MD 10/09/24 16:49:
I saw and examined the patient independently.
The Gamb Cutter's note was reviewed and I agree with the note, assessment and plan except where noted below.
Comment: 64-year-old male presents with his second round of likely biliary pancreatitis. No alcohol history and triglycerides normal. 'Gallbladder sludge' noted on his previous imaging studies. He is in for an MRI today.
Medical management of pancreatitis.
Pain control, titrate IV fluids to urine output, okay to start clear liquid diet and advance as tolerated as long as this does not exacerbate his symptoms.
Will plan for cholecystectomy this admission which the patient is agreeable to. We will follow him daily to assess his course and readiness for surgery.
Original Note:
Consultation
-
Date/Time Consultation Performed: 10/09/24 0930
Medical History
-
Chief Complaint: abdominal pain
History of Present Illness:
Mr Lazaro is a 64 yo male with a h/o pancreatitis with admission in 10/2023 presumed to be gallstone related as sludge was noted on imaging at that time who presents with upper abdominal pain which began 2 days ago and radiated into his back with
associated nausea and vomiting. He presented through the ED yesterday as his pain continued to worsen. He denies active nausea currently but pain continues to be severe. He notes occasional constipation but no acute bowel changes. He has not had
alcohol in over 30 years and denies new medications being initated or recent trauma.
Past Medical History
Past Medical History: Other (Pancreatitis, OA)
Past Surgical History: Orthopedic (Left bicep repair, fibula screws/plates)
Social History
Tobacco: Vaping (prior cigarette smoker)
Alcohol: Other (no ETOH x32 years)
Family History
Family History: Reviewed & Not Pertinent
Allergies / Home Medications
Allergy/AdvReac Type Severity Reaction Status Date / Time
No Known Allergies Allergy Verified 06/25/23 14:49
�Medication �Instructions �Recorded �Confirmed �Type
sertraline 100 mg tablet 100 mg PO DAILY Mental 06/25/23 10/08/24 History
Health/Anxiety
acetaminophen 325 mg tablet 650 mg PO Q6H PRN pain 10/08/24 10/08/24 History
(Tylenol)
meloxicam 15 mg tablet 15 mg PO DAILY 10/08/24 10/08/24 History
Review of Systems
-
History Source: Patient
All other systems: Negative unless noted
A 10 point review of systems was completed, and was negative except as per HPI.
Physical Exam
Vital Signs
Temp Pulse Resp BP Pulse Ox
98.0 F 66 20 189/109 100
10/09/24 07:32 10/09/24 07:32 10/09/24 07:32 10/09/24 07:32 10/09/24 07:32
10/08/24 10/09/24 10/10/24
06:59 06:59 06:59
Actual Weight 114.94 kg
Body Mass Index (BMI) 34.4
Lab Results
10/09/24 07:06
10/09/24 07:06
WBC 14.4 10^3/uL (4.8-10.8) H 10/09/24 07:06
Hgb 15.9 g/dL (13.0-18.0) 10/09/24 07:06
Hct 47.7 % (39.0-52.0) 10/09/24 07:06
Plt Count 244 10^3/uL (130-400) 10/09/24 07:06
Abs Immat Gran (auto) 0.1 10^3/uL (0-0.05) H 10/08/24 22:02
Neutrophils % 55.8 % (42.2-75.2) 10/08/24 22:02
Physical Exam
General: Pain; Negative Comfortable
HEENT: Normocephalic; Negative Scleral Icterus
Respiratory: Non Labored Respirations
GI: Soft and Tender (epigastric across upper abd)
Skin: Warm and Dry
Neuro: Awake, Alert and AO x 3
Psych: Calm
Assessment / Plan
-
64 yo male with a h/o prior pancreatitis episode one year ago ?gallstone mediated who presents with acute pancreatitis with suspected biliary etiology. US this presentation with adenomyomatosis of the gallbladder and mild thickening with follow up
CT demonstrating acute pancreatitis with associated edema and reactive duodenal and gallbladder wall thickening/edema secondary to that process, CBD dilated (stable from previous). Prior imaging from last admission did demonstrate sludge in the
gallbladder. He has had prior MRCP as CBD has been dilated in the past. MRCP done this presentation with read pending. Afebrile. VSS although with hypertension noted. + leukocytosis with WBC of 14.4. Triglyceride wnl, lipase >4k. ALT mildly elevated
otherwise LFT's WNL.
Plan:
Would recommend eventual cholecystectomy to prevent future episodes of pancreatitis once edema/inflammation improved from this current episode. Discussed with patient that cholecystectomy will not relieve this current episode.
Analgesics/Antiemetics as per primary team
Await MRCP
NPO for now, tentative clears once symptomatic improvement
[2024-10-09 12:09] VITALS: BP 159/94
--- NOTE | 2024-10-09 13:12 | CON.GI ---
Consultation
-
Date/Time Consultation Requested: 10/09/2024
Date/Time Consultation Performed: 10/09/2024
Requesting Provider:
Performing Provider:
Reason for Consultation: GS pancreatitis
Medical History
Chief Complaint / HPI
Chief Complaint: epigastric pain
History of Present Illness:
This is a 64-year-old male who has past medical history of anxiety, osteoarthritis on chronic meloxicam, pancreatitis 06/2023 presumed to be from sludge who was in his usual state of health up until last night he had pasta carbonara and also had a
milkshake prior to that and around 6.30 he started to develop acute onset of epigastric pain which progressively worsened and he presented to the emergency room and was diagnosed with acute pancreatitis with elevated lipase level and on imaging was
also noted to have pancreatitis. During his prior episode he was admitted from 06/24-06/29 for pancreatitis and at that time had imaging including an MRCP which showed mild dilated ducts but no obvious CBD stone was seen and also was noted to have
gallbladder sludge and to 6 mm gallbladder polyps on ultrasound 06/25/2023 no obvious stones were noted he then followed up with Dr. Blackmon and had a repeat MRI with MRCP 09/2023 which showed that the pancreatitis had resolved and also showed no evidence
of CBD stone or ductal dilatation was noted at that time. He says that since that episode until now he has not had any further episodes up until last night of abdominal pain. He also had nausea vomiting with the pain and low-grade fever since
admission and on imaging was also noted to have possible cholecystitis and has been started on Unasyn. On repeat ultrasound last night he was noted to have gallbladder adenomyomatosis with mild gallbladder wall thickening and mildly dilated CBD but
no obvious stones were noted. He still continues to have epigastric pain he says that it is less intense today. He does have chronic constipation but has not really been using any laxatives prior to admission. He has never had a colonoscopy in the
past he says he did a Cologuard this year which was negative and he also had one 3 years ago which he says was negative. He does have occasional reflux with certain foods and uses antacids Tums or famotidine as needed no symptoms of dysphagia. He
also denies any rectal bleeding or melena he also denies any mariah colored stools.
Past Medical History
Past Medical History: Other (arthritis, anxiety, GERD, Pancreatitis, GB sludge)
Past Surgical History: Other (Right Rotator Cuff Repair, Leg Fracture Repair)
Social History
Tobacco: Vaping (Former cigarette smoker, quit about 3 years ago. Currently vaping)
Alcohol: None
Drug: None
Personal:
Living: With Family
Family History
Family History: Reviewed & Not Pertinent
Allergies / Home Medications
Allergy/AdvReac Type Severity Reaction Status Date / Time
No Known Allergies Allergy Verified 06/25/23 14:49
�Medication �Instructions �Recorded
sertraline 100 mg tablet 100 mg PO DAILY Mental 06/25/23
Health/Anxiety
acetaminophen 325 mg tablet 650 mg PO Q6H PRN pain 10/08/24
(Tylenol)
meloxicam 15 mg tablet 15 mg PO DAILY 10/08/24
Review of Systems
-
All other systems: A 12 pt ROS was Negative except as stated above in HPI
Vital Signs
Temp Pulse Resp BP Pulse Ox
98.0 F 79 20 159/94 100
10/09/24 07:32 10/09/24 12:09 10/09/24 07:32 10/09/24 12:09 10/09/24 07:32
Physical Exam
Exam
General: No Apparent Distress
HEENT: Normocephalic
Respiratory: Clear
Cardiac: S1/S2 and Regular Rhythm
GI: Other (Soft, nondistended, tender in the epigastric area, good bowel sounds)
Musculoskeletal: No Clubbing
Skin: Warm
Neuro: Awake, Alert and Oriented
Psych: Calm
Results
WBC 14.4 10^3/uL (4.8-10.8) H 10/09/24 07:06
Hgb 15.9 g/dL (13.0-18.0) 10/09/24 07:06
Hct 47.7 % (39.0-52.0) 10/09/24 07:06
MCV 88.3 fL (80.0-94.0) 10/09/24 07:06
Plt Count 244 10^3/uL (130-400) 10/09/24 07:06
Absolute Neuts (auto) 6.7 10^3/uL (1.4-6.5) H 10/08/24 22:02
Sodium 141 mmol/L (135-145) 10/09/24 07:06
Potassium 4.7 mmol/L (3.5-5.1) 10/09/24 07:06
Chloride 104 mmol/L (98-107) 10/09/24 07:06
Carbon Dioxide 27 mmol/L (22-30) 10/09/24 07:06
BUN 21 mg/dl (9-20) H 10/09/24 07:06
Creatinine 0.9 mg/dL (0.7-1.3) 10/09/24 07:06
Calcium 9.3 mg/dl (8.4-10.2) 10/09/24 07:06
Total Bilirubin 1.3 mg/dl (0.2-1.3) 10/09/24 07:06
AST 45 U/L (17-59) 10/09/24 07:06
ALT 55 U/L (0-50) H 10/09/24 07:06
Alkaline Phosphatase 85 U/L (38-126) 10/09/24 07:06
Lipase > 4000 U/L (23-300) H* 10/09/24 07:06
Diagnostic Image Results:
10/09/2024 MRCP
IMPRESSION:
Acute pancreatitis. Small filling defect of the distal common bile duct considered at least suspicious for choledocholithiasis and/or sludge. However, no evidence for cholelithiasis in the gallbladder lumen. Gallbladder hydrops and mild intrahepatic
and extrahepatic bile duct dilatation, increased compared to the MRI abdomen from 09/07/2023.
10/09/2024 US abdomen
IMPRESSION:
Preliminary report provided by [facility].
Findings suggesting adenomyomatosis of the gallbladder, with mild gallbladder wall thickening. No evidence for gallstones.
Dilated superior aspect of the common bile duct, tapering to normal caliber within the pancreatic head. No sonographic evidence for bile duct calculus.
The pancreas is unable to be adequately visualized.
Abdominal aorta is unable to be visualized, but has normal caliber on recent CT scan.
10/08/2024 CT Abd/pelvis W Iv Cont
IMPRESSION: CT findings compatible with pancreatitis with a moderate amount of associated edema. No evidence of collection to suggest abscess or developing pseudocyst at this time.
No evidence for calcified gallstones. Gallbladder wall thickening and/or pericholecystic edema, which is nonspecific.
Intrahepatic and extrahepatic biliary ductal dilation. No evidence for radiopaque bile duct calculus.
Of note, there is also dilation of the pancreatic duct, mainly within the head and neck of the pancreas.
Minimal central hiatal hernia.
Left adrenal gland mass, stable dating back to CT scan of June 2023. This is compatible with an adenoma. Of note, imaging studies do not address the functional status of an adrenal mass. If there are clinical signs or symptoms of adrenal
hyperfunction, biochemical testing may be required to determine if the lesion is excreting excess hormone.
Prior GI Procedures:
EGD: none
Colonoscopy: none
Assessment / Plan
-
1. Recurrent pancreatitis most likely related to gallstones with repeat MRCP from earlier today showing CBD stone with dilation but LFTs are only minimally elevated with mildly elevated transaminases but bilirubin and alkaline phosphatase is normal
and also on imaging was thought to have possible mild acute cholecystitis and has been started on antibiotics for this. He will need ERCP for removal of CBD stone but our therapeutic endoscopist Dr. Blackmon is unavailable this week if another provider
is able to do the ERCP will schedule this for later today or tomorrow morning and if not will have to transfer him to [place] for the procedure. Subsequent timing of cholecystectomy will be per surgery. His triglyceride levels are normal at 52,
calcium is normal at 9.3 and he did have an IgG4 level checked in 2023 that was normal. He also denies any use of alcohol for over 30 years and no other recent change in medications although he does use chronic NSAIDs and has been on meloxicam.
Continue supportive care with pain control, PPI and IV fluids with lactated Ringer's currently at 150 mL an hour. If pain improves could start him on clear liquids. Also would encourage incentive spirometry and ambulation
Data Reviewed
-
CT Scan: Report Reviewed by me
Ultrasound: Report Reviewed by me
MRI: Report Reviewed by me
-
-
Thank you for consultation and allowing me to participate in the patient's care. Please call the [facility] physician during the after hours with any questions or concerns.
[2024-10-09 16:01] VITALS: BP 160/96
[2024-10-09] MEDS: MORPHINE SULFATE 4 MG IV ×2 (17:21→21:18)
[2024-10-09] MEDS: LOVENOX 40 MG SC (17:25)
[2024-10-09 23:17] VITALS: BP 151/89
[2024-10-10] VITALS (11 sets, daily range): BP systolic 99–134; BP diastolic 65–80
[2024-10-10] MEDS: MORPHINE SULFATE 4 MG IV ×4 (01:35→20:15)
[2024-10-10] MEDS: TORADOL 30 MG IV ×3 (04:55→18:11)
[2024-10-10] MEDS: UNASYN IV ×3 (05:39→17:41)
[2024-10-10] MEDS: LR 1000 IV ×2 (05:39→17:47)
--- NOTE | 2024-10-10 07:22 | W.PN.GS2 ---
Today's Communication / Plan
-
-- Timing of cholecystectomy TBD based on clinical course
Assessment / Plan
-
Patient is a 64 yo M p/w pancreatitis likely gallstone mediated
AVSS
Repeat labs pending
The natural history and pathophysiology of biliary and stone disease was reviewed. Role of cholecystectomy in preventing future episodes of pancreatitis was briefly discussed. Continued abdominal pain, as well as findings of possible
choledocholithiasis on his MRI. No plans for cholecystectomy today. Will continue to follow along and determine appropriate timing for his cholecystectomy.
-- Timing of cholecystectomy TBD based on clinical course
-- Medical management of pancreatitis per GI and Hospitalist
-- Diet per GI and Hospitalist
Subjective Data
-
Date of Service: October 10, 2024
Reports continued epigastric and back pain. No nausea or vomiting. Afebrile.
Objective Data
-
Intake and Output
10/09/24 10/10/24 10/11/24
06:59 06:59 06:59
Intake Total 1000 / 1000 3590 / 3590
Balance 1000 / 1000 3590 / 3590
Intake:
Oral fluids 0 / 0
IV fluids (Total) 750 / 750 3150 / 3150
IV piggybacks 250 / 250 440 / 440
Other:
Number of approximated MODERATE 2 3
amounts of urine
Number of immeasurable emeses? 1
Vital Signs
Temp Pulse Resp BP Pulse Ox
98.3 F 77 18 151/89 97
10/09/24 23:17 10/09/24 23:17 10/09/24 23:17 10/09/24 23:17 10/09/24 23:17
Calcium 9.3 mg/dl (8.4-10.2) 10/09/24 07:06
Magnesium 2.0 mg/dl (1.6-2.3) 10/09/24 07:06
Total Bilirubin 1.3 mg/dl (0.2-1.3) 10/09/24 07:06
AST 45 U/L (17-59) 10/09/24 07:06
ALT 55 U/L (0-50) H 10/09/24 07:06
Alkaline Phosphatase 85 U/L (38-126) 10/09/24 07:06
Total Protein 7.5 g/dl (6.3-8.2) 10/09/24 07:06
Albumin 4.6 g/dl (3.5-5.0) 10/09/24 07:06
Physical Exam
-
Gen: uncomfortable
Abd: soft, tender to palpation in epigastrium, obese, no diffuse peritonitis
Patient has a pace catheter: No
Patient has a central line: No
[2024-10-10 07:53] LABS: Hematocrit 46.6 % (39.0-52.0); Hemoglobin 15.3 g/dL (13.0-18.0); Mean Corp Hgb Conc. 32.8 g/dL (33.0-37.0); Mean Corpuscular Volume 87.6 fL (80.0-94.0); Platelet Count 214 10^3/uL (130-400); Red Cell Dist. Width 13.9 % (11.5-14.5)
[2024-10-10] MEDS: NSS (PRESERVATIVE FREE) 10 ML IV (08:04)
[2024-10-10] MEDS: PROTONIX IV 40 MG IV (08:04)
[2024-10-10] MEDS: ZOLOFT 100 MG PO (08:04)
[2024-10-10 08:41] LABS: ALT (SGPT) 37 U/L (0-50); AST (SGOT) 45 U/L (17-59); Albumin 3.9 g/dl (3.5-5.0); Alkaline Phosphatase 58 U/L (38-126); Blood Urea Nitrogen 20 mg/dl (9-20); Calcium 8.4 mg/dl (8.4-10.2); Carbon Dioxide 28 mmol/L (22-30); Chloride 105 mmol/L (98-107); Estimated Creatinine Clearance 122 ml/min; Glucose 124 mg/dl (70-99); Potassium 4.0 mmol/L (3.5-5.1); Sodium 139 mmol/L (135-145); Total Protein 6.5 g/dl (6.3-8.2); eGFR > 60.00
--- NOTE | 2024-10-10 10:28 | W.PN.HOSP.TC ---
Today's Communication/Plan
-
ERCP today.
Assessment / Plan
Assessment / Plan
Impression:
Patient is a 64 y/o male past medical history of osteoarthritis, anxiety and prior episode of pancreatitis who presents with abdominal pain, he past medical history significant for prior episode of pancreatitis of unclear etiology, diabetes noted to
be elevated above 4000.
CT A/P : Moderate peripancreatic inflammatory fat stranding and fluid. Fluid extends down the root of the mesentery. No hemorrhage necrosis or pseudocyst. The gallbladder is moderately distended with gallbladder wall thickening and faint
pericholecystic fat stranding at the rupali hepatis without radiopaque gallstones. Slightly increased intrahepatic and extrahepatic biliary ductal dilation. Common duct measures 11 mm with radiopaque ductal stones. Consider concomitant acute
cholecystitis and biliary obstruction with a gallstone.
Patient admitted under hospitalist service, consult for gastroenterology/surgery.
MRCP shows:
Acute pancreatitis.
Small filling defect of the distal common bile duct considered at least suspicious for choledocholithiasis and/or sludge. However, no evidence for cholelithiasis in the gallbladder lumen. Gallbladder hydrops and mild intrahepatic and extrahepatic
bile duct dilatation, increased compared to the MRI abdomen from 09/07/2023
GI recommending ERCP
Surgery recommending cholecystectomy.
Assessment/plan:
Acute pancreatitis -recurrent episode of pancreatitis #2 without clear etiology. Last evaluation was inconclusive and suspicion remains for gallstone pancreatitis. Cannot rule out acute cholecystis entirely
- Admit to MedSurg
- N.p.o. for now
- LR at 150
- As needed Dilaudid and Toradol.
- IV PPI daily, IV famotidine at bedtime
- Trend LFTs and lipase
- started on unasyn.
- US RUQ shows:
Preliminary report provided by [facility].
Findings suggesting adenomyomatosis of the gallbladder, with mild gallbladder wall thickening. No evidence for gallstones.
Dilated superior aspect of the common bile duct, tapering to normal caliber within the pancreatic head. No sonographic evidence for bile duct calculus.
The pancreas is unable to be adequately visualized.
Abdominal aorta is unable to be visualized, but has normal caliber on recent CT scan
- GI consultation/ Surgery consult.
10/09
added toradol to Dilaudid, then switched dilaudid to morphine.
Follow GI and surgery recommendations.
10/10
MRCP shows:
Acute pancreatitis.
Small filling defect of the distal common bile duct considered at least suspicious for choledocholithiasis and/or sludge. However, no evidence for cholelithiasis in the gallbladder lumen. Gallbladder hydrops and mild intrahepatic and extrahepatic
bile duct dilatation, increased compared to the MRI abdomen from 09/07/2023
GI recommending ERCP
Surgery recommending cholecystectomy.
CODE STATUS: Full code
DVT prophylaxis: Lovenox
Diet: NPO
Disposition: ERCP today.
Family communication: Discussed with at bedside.
Total time spent on today's encounter was 65 minutes which included time spent in counseling the patient/family regarding diagnosis and treatment plan as listed above, goals of care, and symptom management. Case was discussed with nursing staff,
specialists, and care coordinators/case management. All labs and imaging personally reviewed by me. Remainder the time spent in detailed review of previous records, lab data, imaging, and other medical provider documentation.
Anticipated Discharge: > 48 hours
Subjective/Interval History
-
Date of Service: October 10, 2024
Patient seen and examined at bedside, at bedside denies any chest pain or shortness of breath, still with abdominal pain slightly improved compared to yesterday.
For ERCP today.
Objective Data
-
Labs:
Laboratory Results
10/10/24
07:35
WBC 21.8 H
Hgb 15.3
Hct 46.6
Plt Count 214
Sodium 139
Potassium 4.0
Chloride 105
Carbon Dioxide 28
BUN 20
Creatinine 0.8
Glucose 124 H
Calcium 8.4
Total Bilirubin 2.9 H D
AST 45
ALT 37
Alkaline Phosphatase 58
Vital Signs:
Vital Signs
Temp Pulse Resp BP Pulse Ox
97.8 F 87 20 124/76 97
10/10/24 07:10 10/10/24 07:10 10/10/24 07:10 10/10/24 07:10 10/10/24 07:10
I&O
10/09/24 10/10/24 10/11/24
06:59 06:59 06:59
Intake Total 1000 / 1000 3590 / 3590
Balance 1000 / 1000 3590 / 3590
Physical Exam
-
General: Well Developed, Well Nourished, No Apparent Distress and Comfortable
HEENT: Normocephalic, Atraumatic, Moist Mucous Membranes, No Ptosis, PERRLA and Nose Appears Normal
Respiratory: Rales, Rhonchi and Non Labored Respirations
Cardiac: Regular Rhythm and S1/S2
Breast: Deferred by me
GI: Tender
Genito-urinary: No Costovertebral Tender
Musculoskeletal: No Clubbing, No Cyanosis and No Edema
Skin: Warm
Neuro: Awake, Alert, Oriented, AO x 3 and No Motor Deficits
Psych: Calm
Data Reviewed
-
Diagnostic Radiology: Image personally visualized and interpreted and Report Reviewed by me
CT Scan: Image personally visualized and interpreted and Report Reviewed by me
Ultrasound: Image personally visualized and interpreted and Report Reviewed by me
MRI: Image personally visualized and interpreted and Report Reviewed by me
Medical Tests (Nuc Med, Echo etc): Image personally visualized and interpreted and Report Reviewed by me
Labs: Labs Reviewed by me
Old Records: Reviewed
[2024-10-10] MEDS: LOVENOX 40 MG SC (17:41)
[2024-10-10] MEDS: LR IV ×2 (17:43→17:47)
[2024-10-11] VITALS (14 sets, daily range): BP systolic 105–158; BP diastolic 64–99
[2024-10-11] MEDS: UNASYN IV ×5 (00:28→23:30)
[2024-10-11] MEDS: LR 1000 IV ×3 (00:45→16:00)
[2024-10-11] MEDS: MORPHINE SULFATE 4 MG IV ×4 (00:47→23:31)
[2024-10-11 06:32] LABS: Hematocrit 41.5 % (39.0-52.0); Hemoglobin 13.9 g/dL (13.0-18.0); Mean Corp Hgb Conc. 33.5 g/dL (33.0-37.0); Mean Corpuscular Volume 88.1 fL (80.0-94.0); Platelet Count 188 10^3/uL (130-400); Red Cell Dist. Width 13.9 % (11.5-14.5)
[2024-10-11 06:51] LABS: ALT (SGPT) 29 U/L (0-50); AST (SGOT) 30 U/L (17-59); Albumin 3.4 g/dl (3.5-5.0); Alkaline Phosphatase 63 U/L (38-126); Blood Urea Nitrogen 18 mg/dl (9-20); Calcium 8.0 mg/dl (8.4-10.2); Carbon Dioxide 29 mmol/L (22-30); Chloride 103 mmol/L (98-107); Estimated Creatinine Clearance 109 ml/min; Glucose 124 mg/dl (70-99); Potassium 3.9 mmol/L (3.5-5.1); Sodium 136 mmol/L (135-145); Total Protein 5.8 g/dl (6.3-8.2); eGFR > 60.00
[2024-10-11] MEDS: ZOLOFT 100 MG PO (09:23)
[2024-10-11] MEDS: NSS (PRESERVATIVE FREE) 10 ML IV (09:23)
[2024-10-11] MEDS: PROTONIX IV 40 MG IV (09:23)
--- NOTE | 2024-10-11 09:40 | W.PN.GS2 ---
Today's Communication / Plan
-
Will plan for a laparoscopic cholecystectomy and IOC today.
Assessment / Plan
-
Patient is a 64 yo M p/w pancreatitis likely gallstone mediated. Possible choledocholithiasis on MRCP, and unfortunately status post aborted ERCP yesterday.
As the patient is appear to have improved clinically from pancreatitis standpoint we will plan for laparoscopic cholecystectomy with IOC and possible common bile duct exploration today.
N.p.o., IV fluids, IV antibiotics.
Risks/Benefits/Alternatives, expected postoperative course and possible complications (bleeding, infection, injury to surrounding structures, acute/chronic pain) discussed at length. Patient wishes to proceed with surgery. All questions answered.
Consent obtained.
I spent 55 minutes in total for the care of this patient today including direct patient care and counseling, reviewing labs, imaging, coordination of care, as well as documentation.
Time Spent
Total Time Spent with Patient (in minutes): 30
Subjective Data
-
Date of Service: October 11, 2024
Interval Events:
No acute events overnight. Slept well. Denies Nausea/Vomiting. Pain improved.
Objective Data
-
Intake and Output
10/10/24 10/11/24 10/12/24
06:59 06:59 06:59
Intake Total 3590 / 3590 580 / 580
Balance 3590 / 3590 580 / 580
Intake:
Oral fluids 0 / 0 480 / 480
IV fluids (Total) 3150 / 3150 100 / 100
Normosol 100 / 100
IV piggybacks 440 / 440
Other:
Number of approximated MODERATE 3 1
amounts of urine
Vital Signs
Temp Pulse Resp BP Pulse Ox
98.5 F 77 18 134/76 93
10/11/24 07:56 10/11/24 07:56 10/11/24 07:56 10/11/24 07:56 10/11/24 07:56
Lab Results
10/11/24 06:07
10/11/24 06:07
Calcium 8.0 mg/dl (8.4-10.2) L 10/11/24 06:07
Magnesium 2.0 mg/dl (1.6-2.3) 10/09/24 07:06
Total Bilirubin 2.2 mg/dl (0.2-1.3) H 10/11/24 06:07
Direct Bilirubin 0.3 mg/dl (0.0-0.4) 10/10/24 07:35
AST 30 U/L (17-59) 10/11/24 06:07
ALT 29 U/L (0-50) 10/11/24 06:07
Alkaline Phosphatase 63 U/L (38-126) 10/11/24 06:07
Total Protein 5.8 g/dl (6.3-8.2) L 10/11/24 06:07
Albumin 3.4 g/dl (3.5-5.0) L 10/11/24 06:07
Physical Exam
-
GENERAL/NEURO: Awake, Alert, no distress
CHEST: Unlabored breathing on RA
ABDOMEN: Soft, Non-Tender, mildly distended, obese.
Patient has a pace catheter: No
Patient has a central line: No
--- NOTE | 2024-10-11 09:44 | W.SUR.PREOP ---
Pre-Operative Surgical Note
-
I have examined this patient prior to the performance of the scheduled procedure.
The patient's condition is unchanged from the time of the current History and
Physical and the patient is able to undergo the scheduled procedure.
[2024-10-11] MEDS: TORADOL 30 MG IV (10:12)
--- NOTE | 2024-10-11 11:02 | PN.CDI ---
CDI
- -
CDI:
Physician Documentation Request
Admit Date: 10/08/24 23:59
Dear Doctor Daniel,
Patient admitted for pancreatitis.
Laboratory Tests
10/08/24 10/09/24
22:02 07:06
WBC 12.0 H 14.4 H
10/08/24
21:17 10/08/24
22:45 10/09/24
02:02
Resp Rate 30 28 24
Please clarify which of the following most accurately describes the status of the patient's infection:
Sepsis, POA
- Systemic manifestations of infection, with 2 or more SIRS criteria which include:
- Fever >100.9 degrees F or hypothermia < 96.8 degrees F
- Leukocytosis - WBC > 12,000 or leukopenia - WBC < 4,000 or > 10% bands
- Tachycardia > 90 beats per minute
- Tachypnea - RR > 20 breaths per minute or PaCO2 , 32mmHg
Source: Merck Manual 2013
Localized Infection Only, Without Systemic Illness
- indicate the site/source, such as UTI, pneumonia etc.
Other
Use of terms such as suspected, likely, concern for, or probable (associated with a specific diagnosis that is being evaluated, monitored, or treated as if it exists) are acceptable and can be coded in the inpatient setting, when documented at the
time of discharge.
Thank you,
Tiera Beltran RN, BSN
CDI Specialist
Available via [place] text
Please use your independent medical judgment in providing your response.
--- NOTE | 2024-10-11 11:14 | W.PN.HOSP.TC ---
Addendum entered and electronically signed by Devon Sanchez MD 10/11/24 11:59:
Today's Communication/Plan
-
Cholecystectomy today
___Sepsis, POA
Patient meets sepsis criteria with tach cytosis, tachycardia and low-grade fever
Source of infection intra-abdominal, pancreatitis/cholecystitis
Continues with Unasyn
Original Note:
Today's Communication/Plan
-
Mastectomy today
Assessment / Plan
Assessment / Plan
Impression:
Patient is a 64 y/o male past medical history of osteoarthritis, anxiety and prior episode of pancreatitis who presents with abdominal pain, he past medical history significant for prior episode of pancreatitis of unclear etiology, diabetes noted to
be elevated above 4000.
CT A/P : Moderate peripancreatic inflammatory fat stranding and fluid. Fluid extends down the root of the mesentery. No hemorrhage necrosis or pseudocyst. The gallbladder is moderately distended with gallbladder wall thickening and faint
pericholecystic fat stranding at the rupali hepatis without radiopaque gallstones. Slightly increased intrahepatic and extrahepatic biliary ductal dilation. Common duct measures 11 mm with radiopaque ductal stones. Consider concomitant acute
cholecystitis and biliary obstruction with a gallstone.
Patient admitted under hospitalist service, consult for gastroenterology/surgery.
MRCP shows:
Acute pancreatitis.
Small filling defect of the distal common bile duct considered at least suspicious for choledocholithiasis and/or sludge. However, no evidence for cholelithiasis in the gallbladder lumen. Gallbladder hydrops and mild intrahepatic and extrahepatic
bile duct dilatation, increased compared to the MRI abdomen from 09/07/2023
GI recommending ERCP
Surgery recommending cholecystectomy.
10/10 ERCP attempted but secondary to diffuse edema at the duodenum, cannot proceed with the scope.
10/11 for cholecystectomy today
Assessment/plan:
Acute pancreatitis -recurrent episode of pancreatitis #2 without clear etiology. Last evaluation was inconclusive and suspicion remains for gallstone pancreatitis. Cannot rule out acute cholecystis entirely
- Admit to [facility]
- N.p.o. for now
- LR at 150
- As needed Dilaudid and Toradol.
- IV PPI daily, IV famotidine at bedtime
- Trend LFTs and lipase
- started on unasyn.
- US RUQ shows:
Preliminary report provided by [facility].
Findings suggesting adenomyomatosis of the gallbladder, with mild gallbladder wall thickening. No evidence for gallstones.
Dilated superior aspect of the common bile duct, tapering to normal caliber within the pancreatic head. No sonographic evidence for bile duct calculus.
The pancreas is unable to be adequately visualized.
Abdominal aorta is unable to be visualized, but has normal caliber on recent CT scan
- GI consultation/ Surgery consult.
10/09
added toradol to Dilaudid, then switched dilaudid to morphine.
Follow GI and surgery recommendations.
10/10
MRCP shows:
Acute pancreatitis.
Small filling defect of the distal common bile duct considered at least suspicious for choledocholithiasis and/or sludge. However, no evidence for cholelithiasis in the gallbladder lumen. Gallbladder hydrops and mild intrahepatic and extrahepatic
bile duct dilatation, increased compared to the MRI abdomen from 09/07/2023
GI recommending ERCP
Surgery recommending cholecystectomy.
10/10 ERCP attempted but secondary to diffuse edema at the duodenum, cannot proceed with the scope.
10/11 for cholecystectomy today
CODE STATUS: Full code
DVT prophylaxis: Lovenox
Diet: NPO
Disposition: ERCP today.
Family communication: Discussed with at bedside.
Total time spent on today's encounter was 65 minutes which included time spent in counseling the patient/family regarding diagnosis and treatment plan as listed above, goals of care, and symptom management. Case was discussed with nursing staff,
specialists, and care coordinators/case management. All labs and imaging personally reviewed by me. Remainder the time spent in detailed review of previous records, lab data, imaging, and other medical provider documentation.
Anticipated Discharge: 24 - 48 hours
Subjective/Interval History
-
Date of Service: October 11, 2024
Patient seen and examined at bedside, at bedside, patient denies any chest pain or shortness of breath, abdominal pain improved, plan for cholecystectomy today.
Objective Data
-
Labs:
Laboratory Results
10/11/24
06:07
WBC 22.1 H
Hgb 13.9
Hct 41.5
Plt Count 188
Sodium 136
Potassium 3.9
Chloride 103
Carbon Dioxide 29
BUN 18
Creatinine 0.9
Glucose 124 H
Calcium 8.0 L
Total Bilirubin 2.2 H
AST 30
ALT 29
Alkaline Phosphatase 63
Vital Signs:
Vital Signs
Temp Pulse Resp BP Pulse Ox
98.5 F 77 18 134/76 93
10/11/24 07:56 10/11/24 07:56 10/11/24 07:56 10/11/24 07:56 10/11/24 07:56
I&O
10/10/24 10/11/24 10/12/24
06:59 06:59 06:59
Intake Total 3590 / 3590 580 / 580
Balance 3590 / 3590 580 / 580
Physical Exam
-
General: Well Developed, Well Nourished, No Apparent Distress and Comfortable
HEENT: Normocephalic, Atraumatic, Moist Mucous Membranes, No Ptosis, PERRLA and Nose Appears Normal
Respiratory: Rales, Rhonchi and Non Labored Respirations
Cardiac: Regular Rhythm and S1/S2
Breast: Deferred by me
GI: Tender
Genito-urinary: No Costovertebral Tender
Musculoskeletal: No Clubbing, No Cyanosis and No Edema
Skin: Warm
Neuro: Awake, Alert, Oriented, AO x 3 and No Motor Deficits
Psych: Calm
Data Reviewed
-
Diagnostic Radiology: Image personally visualized and interpreted and Report Reviewed by me
CT Scan: Image personally visualized and interpreted and Report Reviewed by me
Ultrasound: Image personally visualized and interpreted and Report Reviewed by me
MRI: Image personally visualized and interpreted and Report Reviewed by me
Medical Tests (Nuc Med, Echo etc): Image personally visualized and interpreted and Report Reviewed by me
Labs: Labs Reviewed by me
Old Records: Reviewed
--- NOTE | 2024-10-11 12:20 | CM ---
Reviewed the chart notes. Patient to OR today for laparoscopic cholecystectomy. CM continues to be available to patient/family and is monitoring medical plan for needs at discharge.
Plan: Discharge plans will depend on the patient's progress.
--- NOTE | 2024-10-11 13:45 | W.PN.GI.CBS2 ---
Addendum entered and electronically signed by Eleanor Cabello MD 10/11/24 18:02:
Received message from Dr. Joyce that intraoperative cholangiogram is negative.
No further GI workup at this time. Will sign off, please call back if needed.
Original Note:
Today's Communication / Plan
-
- Likely gallstone pancreatitis, second episode
Leukocytosis noted, currently on Unasyn .
Elevated total bilirubin, mainly indirect, normal transaminases and alkaline phosphatase
Attempted ERCP 10/10/2024 but ampulla could not be cannulated due to edematous mucosa.
Plan at this time to take patient for laparoscopic cholecystectomy with intraoperative cholangiogram. If the intraoperative cholangiogram is positive, he will need ERCP.
I called and reviewed the patient's results with advanced endoscopy fellow at [facility], Dr. Fuller. They are agreeable with doing ERCP if necessary with abdominal and back procedure.
Will follow-up on the above testing.
Assessment / Plan
-
1. Recurrent pancreatitis most likely related to gallstones with repeat MRCP showing CBD stone with dilation.
His triglyceride levels are normal at 52, calcium is normal at 9.3 and he did have an IgG4 level checked in 2023 that was normal. He also denies any use of alcohol for over 30 years and no other recent change in medications although he does use
chronic NSAIDs and has been on meloxicam.
- Likely gallstone pancreatitis, second episode
Leukocytosis noted, currently on Unasyn .
Elevated total bilirubin, mainly indirect, normal transaminases and alkaline phosphatase
Attempted ERCP 10/10/2024 but ampulla could not be cannulated due to edematous mucosa.
Plan at this time to take patient for laparoscopic cholecystectomy with intraoperative cholangiogram. If the intraoperative cholangiogram is positive, he will need ERCP.
I called and reviewed the patient's results with advanced endoscopy fellow at [facility], Dr. Fuller. They are agreeable with doing ERCP if necessary with abdominal and back procedure.
Will follow-up on the above testing.
Subjective
Subjective
Date of Service: October 11, 2024
Patient denies any abdominal pain, but reports mild discomfort in the mid abdomen but much improved than on admission, no nausea or vomiting. No fevers or chills.
Objective
Data Reviewed
Laboratory Data:
Laboratory Results
10/11/24 06:07
10/11/24 06:07
Laboratory Results
Magnesium 2.0 mg/dl (1.6-2.3) 10/09/24 07:06
Total Bilirubin 2.2 mg/dl (0.2-1.3) H 10/11/24 06:07
AST 30 U/L (17-59) 10/11/24 06:07
ALT 29 U/L (0-50) 10/11/24 06:07
Alkaline Phosphatase 63 U/L (38-126) 10/11/24 06:07
Lipase > 4000 U/L (23-300) H* 10/09/24 07:06
Vital Signs and I&O:
Vital Signs
Temp Pulse Resp BP Pulse Ox
98.5 F 77 18 134/76 93
10/11/24 07:56 10/11/24 07:56 10/11/24 07:56 10/11/24 07:56 10/11/24 07:56
I&O
10/10/24 10/11/24 10/12/24
06:59 06:59 06:59
Intake Total 3590 / 3590 580 / 580
Balance 3590 / 3590 580 / 580
Physical Exam
Physical Exam
GI: Soft, Non Distended and Non Tender
--- NOTE | 2024-10-11 14:45 | W.IMMPOSTOP ---
Surgical Immed Post Op Note
-
Primary Surgeon: Al Mayorga MD
Assisting Surgeon: None
Pre-op Diagnosis: Gallstone pancreatitis
Post-op Diagnosis: Same
Procedure Performed: Laparoscopic cholecystectomy with cholangiogram
Anesthesia Type: General
Specimen / Cultures: Gallbladder
Estimated Blood Loss: 23 cc
Complications: None
Operative Findings: Mild inflammation and saponification noted in the right upper quadrant. Markedly distended gallbladder with intentional perforation and decompression of dark bile. No spillage of stones. The critical view of safety was
obtained prior to a cholangiogram which demonstrated a dilated common bile duct as well as a dilated pancreatic duct without filling defect/obstruction. There was free flow of contrast into the duodenum. The duct was ligated with a 5 mm titanium
clip followed by a 0 PDS Endoloop. The right upper quadrant was irrigated until clear. The liver on gross inspection appeared consistent with fatty liver disease.
POST OP PLAN:
Imaging: None
Labs: Routine AM
Diet: Clears
Analgesia: Continue current pain control regimen
Neuro/vascular checks: Per unit
AC/AP: Hold Therapeutic AC, Ok for DVT PPx
Activity: Ad Chandrika
Wound/Incisions/Drains: Routine
Abx: Continue antibiotics per primary
Dispo: RNF
--- NOTE | 2024-10-11 14:50 | OR.RPT ---
Operative Report
Operative Report
Patient Name: Hudson Lazaro
: 1960
Date of Operation: 10/11/2024
Preoperative Diagnosis: gallstone pancreatitis
Postoperative Diagnosis: Same
Procedure(s):
Laparoscopic Cholecystectomy with Cholangiogram
Surgeon(s):
Dr. Mayorga
Information Systems Security Officer(s):
TEREZA Duarte
Anesthesia: General
Estimated Blood Loss: 23 cc
Urine Output: None
Drains/Lines/Implants: None
Specimens:
1. Gallbladder and contents
HPI/Surgical Indications:
This is a 64-year-old male who presented to our hospital earlier this week with a 2-day history of epigastric abdominal pain. Exam, labs and imaging are consistent with gallstone pancreatitis and possibly choledocholithiasis. He initially underwent
ERCP but this had to be aborted due to to technical challenges. Risks/Benefits/Alternatives were discussed at length, and the patient agreed to proceed with surgery with intraoperative cholangiogram and potential transcystic approach to clearance
of the duct.
Operative Findings: Mild inflammation and saponification noted in the right upper quadrant. Markedly distended gallbladder with intentional perforation and decompression of dark bile. No spillage of stones. The critical view of safety was
obtained prior to a cholangiogram which demonstrated a dilated common bile duct as well as a dilated pancreatic duct without filling defect/obstruction. There was free flow of contrast into the duodenum. The duct was ligated with a 5 mm titanium
clip followed by a 0 PDS Endoloop. The right upper quadrant was irrigated until clear. The liver on gross inspection appeared consistent with fatty liver disease.
Procedure Description:
The patient was brought to the Operating Room and placed in the supine position with one arm tucked. Following uneventful induction of general endotracheal anesthesia, an orogastric tube was placed. The abdomen was prepped and draped in the usual
sterile fashion. A timeout was performed confirming the procedure, consent, and that IV antibiotics were infused and sequential compression devices were confirmed to be on. The abdomen was entered using a left subcostal Veress technique which
required a single pass followed by a 5 mm right upper quadrant Optiview trocar. Pneumoperitoneum to 15 mmHg pressure was obtained without difficulty and we confirmed that no injury had occurred during our entry. The patient was positioned in
reverse Trendelenberg and rotated with the right side up slightly. Two 5 mm trocars were then placed along the right subcostal margin, followed by a 12 mm port in the epigastrium. There was significant inflammation and saponification noted in the
right upper quadrant and along the abdominal wall. The gallbladder was markedly distended so was decompressed. There was some spillage of bile but no stones. A locking grasping forceps was placed on the fundus of the gallbladder where it was then
retracted cephalad and to the right. Using appropriate grasping instruments, the peritoneum overlying the triangle of Calot was incised and extended superiorly on both the anterior and posterior gallbladder rivera. The infundibulum was dissected off
the cystic plate. The cystic triangle was dissected until a critical view of safety was achieved. The cystic artery was medialized, dissected and controlled with 2 proximal clips and 1 distal. The cystic duct/gallbladder junction in turn was
identified, dissected circumferentially and a clip was placed. A ductotomy was made and a cholangiocatheter on an Petty clamp was inserted into the cystic duct. A C-arm was draped and brought into the field. An intra-operative cholangiogram was
performed and was noted to have:
No filling defects in the biliary tree
Significant biliary dilation as well as dilation of the pancreatic duct.
Brisk flow of contrast into the duodenum
Normal biliary anatomy
The catheter was then removed and the cystic duct was controlled with a clip followed by a 0 PDS Endoloop. After ensuring both the artery and duct were divided, the gallbladder was freed from the liver using electrocautery. There was some spillage
of bile, but no spillage of stones. The gallbladder bed was inspected and excellent hemostasis was obtained. The liver was noted to be slightly enlarged and on gross inspection consistent with fatty liver disease. It was very friable and there was
a small laceration near the top of the gallbladder fossa into the liver where the fundus had been retracted however this was cauterized and there was no bleeding or leak from this area. The gallbladder was extracted through the 12 mm trocar site
using an endocatch bag. The abdomen was again irrigated and excellent hemostasis was assured. All remaining trocars were then removed and the pneumoperitoneum was evacuated. The 12 mm trocar site was closed using 0 PDS suture. All trocar sites
were closed at the skin level using 4-0 Monocryl followed by Dermabond. Overall, the patient tolerated the procedure well and was taken to the Recovery Room postoperatively in stable condition.
I was the attending physician and performed the procedure with assistance from the PA student above. I was present for all portions of the case.
Al Mayorga MD
[2024-10-11] MEDS: LOVENOX SC (17:26)
[2024-10-12] MEDS: LR 1000 IV (01:35)
[2024-10-12 03:05] VITALS: BP 152/95
[2024-10-12] MEDS: MORPHINE SULFATE 4 MG IV ×2 (03:43→08:06)
[2024-10-12] MEDS: UNASYN IV (05:03)
[2024-10-12] MEDS: TORADOL 30 MG IV (05:11)
[2024-10-12 07:00] VITALS: BP 151/93
[2024-10-12] MEDS: ZOLOFT 100 MG PO (08:04)
[2024-10-12] MEDS: NSS (PRESERVATIVE FREE) IV ×2 (08:05→08:26)
[2024-10-12] MEDS: PROTONIX IV IV ×2 (08:06→08:26)
[2024-10-12 08:09] LABS: Hematocrit 38.9 % (39.0-52.0); Hemoglobin 12.9 g/dL (13.0-18.0); Mean Corp Hgb Conc. 33.2 g/dL (33.0-37.0); Mean Corpuscular Volume 87.6 fL (80.0-94.0); Platelet Count 176 10^3/uL (130-400); Red Cell Dist. Width 13.6 % (11.5-14.5)
[2024-10-12 08:29] LABS: ALT (SGPT) 33 U/L (0-50); AST (SGOT) 28 U/L (17-59); Albumin 3.3 g/dl (3.5-5.0); Alkaline Phosphatase 59 U/L (38-126); Blood Urea Nitrogen 15 mg/dl (9-20); Calcium 8.4 mg/dl (8.4-10.2); Carbon Dioxide 26 mmol/L (22-30); Chloride 101 mmol/L (98-107); Estimated Creatinine Clearance > 125 ml/min; Glucose 120 mg/dl (70-99); Potassium 3.8 mmol/L (3.5-5.1); Sodium 133 mmol/L (135-145); Total Protein 5.9 g/dl (6.3-8.2); eGFR > 60.00
[2024-10-12] MEDS: LR IV (10:17)
--- NOTE | 2024-10-12 10:52 | W.PN.GS2 ---
Today's Communication / Plan
-
Dispo planning
Assessment / Plan
-
Patient is a 64 yo M p/w pancreatitis likely gallstone mediated. Possible choledocholithiasis on MRCP, and unfortunately status post aborted ERCP on 10/10/2024. Postoperative day 1 from a laparoscopic cholecystectomy with intraoperative cholangiogram
which was negative for choledocholithiasis on 10/11/2024. Doing well, expected postoperative course.
Did well with clears, can advance to a regular diet
Stop IV fluids
Labs all downtrending
Patient is cleared from a surgical perspective for discharge, will defer to primary.
No role for antibiotics on discharge from a surgery perspective.
Patient to follow-up with me in 2 weeks. Discharge instructions placed.
Time Spent
Total Time Spent with Patient (in minutes): 20
Subjective Data
-
Date of Service: October 12, 2024
Interval Events:
No acute events overnight. Slept well. Pain Controlled. Denies Nausea/Vomiting, +bowel function. Tolerating diet.
Objective Data
-
Intake and Output
10/11/24 10/12/24 10/13/24
06:59 06:59 06:59
Intake Total 580 / 580 3100 / 3100
Balance 580 / 580 3100 / 3100
Intake:
Oral fluids 480 / 480 960 / 960
IV fluids (Total) 100 / 100 1900 / 1900
Normosol 100 / 100
normasol 150 / 150
IV piggybacks 240 / 240
Other:
Number of approximated MODERATE 1 3
amounts of urine
Vital Signs
Temp Pulse Resp BP Pulse Ox
99.8 F 90 20 151/93 96
10/12/24 07:00 10/12/24 07:00 10/12/24 07:00 10/12/24 07:00 10/12/24 07:00
Lab Results
10/12/24 07:40
10/12/24 07:40
Calcium 8.4 mg/dl (8.4-10.2) 10/12/24 07:40
Magnesium 2.0 mg/dl (1.6-2.3) 10/09/24 07:06
Total Bilirubin 1.7 mg/dl (0.2-1.3) H 10/12/24 07:40
Direct Bilirubin 0.3 mg/dl (0.0-0.4) 10/10/24 07:35
AST 28 U/L (17-59) 10/12/24 07:40
ALT 33 U/L (0-50) 10/12/24 07:40
Alkaline Phosphatase 59 U/L (38-126) 10/12/24 07:40
Total Protein 5.9 g/dl (6.3-8.2) L 10/12/24 07:40
Albumin 3.3 g/dl (3.5-5.0) L 10/12/24 07:40
Physical Exam
-
GENERAL/NEURO: Awake, Alert, no distress
CHEST: Unlabored breathing on RA
ABDOMEN: Soft, Non-Tender, Non-Distended, incisions clean dry and intact.
Patient has a pace catheter: No
Patient has a central line: No
--- NOTE | 2024-10-12 11:22 | CM ---
Reviewed the chart notes. Patient diet advanced to low fat. Patient for potential discharge today to home. CM continues to be available to patient/family and is monitoring medical plan for needs at discharge.
Plan: Discharge to home when medically stable. Patient's spouse to provide transportation. No needs anticipated.
--- NOTE | 2024-10-12 11:33 | W.PN.HOSP.TC ---
Today's Communication/Plan
-
Discharge home today
Assessment / Plan
Assessment / Plan
Impression:
Patient is a 64 y/o male past medical history of osteoarthritis, anxiety and prior episode of pancreatitis who presents with abdominal pain, he past medical history significant for prior episode of pancreatitis of unclear etiology, diabetes noted to
be elevated above 4000.
CT A/P : Moderate peripancreatic inflammatory fat stranding and fluid. Fluid extends down the root of the mesentery. No hemorrhage necrosis or pseudocyst. The gallbladder is moderately distended with gallbladder wall thickening and faint
pericholecystic fat stranding at the rupali hepatis without radiopaque gallstones. Slightly increased intrahepatic and extrahepatic biliary ductal dilation. Common duct measures 11 mm with radiopaque ductal stones. Consider concomitant acute
cholecystitis and biliary obstruction with a gallstone.
Patient admitted under hospitalist service, consult for gastroenterology/surgery.
MRCP shows:
Acute pancreatitis.
Small filling defect of the distal common bile duct considered at least suspicious for choledocholithiasis and/or sludge. However, no evidence for cholelithiasis in the gallbladder lumen. Gallbladder hydrops and mild intrahepatic and extrahepatic
bile duct dilatation, increased compared to the MRI abdomen from 09/07/2023
GI recommending ERCP
Surgery recommending cholecystectomy.
10/10 ERCP attempted but secondary to diffuse edema at the duodenum, cannot proceed with the scope.
10/11 laparoscopic cholecystectomy with intraoperative cholangiogram which was negative for choledocholithiasis
Doing well, Tolerated low-fat diet and will be discharged home
Assessment/plan:
Acute pancreatitis -recurrent episode of pancreatitis #2 without clear etiology. Last evaluation was inconclusive and suspicion remains for gallstone pancreatitis. Cannot rule out acute cholecystis entirely
- Admit to MedSurg
- N.p.o. for now
- LR at 150
- As needed Dilaudid and Toradol.
- IV PPI daily, IV famotidine at bedtime
- Trend LFTs and lipase
- started on unasyn.
- US RUQ shows:
Preliminary report provided by [facility].
Findings suggesting adenomyomatosis of the gallbladder, with mild gallbladder wall thickening. No evidence for gallstones.
Dilated superior aspect of the common bile duct, tapering to normal caliber within the pancreatic head. No sonographic evidence for bile duct calculus.
The pancreas is unable to be adequately visualized.
Abdominal aorta is unable to be visualized, but has normal caliber on recent CT scan
- GI consultation/ Surgery consult.
10/09
added toradol to Dilaudid, then switched dilaudid to morphine.
Follow GI and surgery recommendations.
10/10
MRCP shows:
Acute pancreatitis.
Small filling defect of the distal common bile duct considered at least suspicious for choledocholithiasis and/or sludge. However, no evidence for cholelithiasis in the gallbladder lumen. Gallbladder hydrops and mild intrahepatic and extrahepatic
bile duct dilatation, increased compared to the MRI abdomen from 09/07/2023
GI recommending ERCP
Surgery recommending cholecystectomy.
10/10 ERCP attempted but secondary to diffuse edema at the duodenum, cannot proceed with the scope.
10/11 for cholecystectomy today
10/12
S/P laparoscopic cholecystectomy with intraoperative cholangiogram which was negative for choledocholithiasis
Doing well, Tolerated low-fat diet and will be discharged home
CODE STATUS: Full code
DVT prophylaxis: Lovenox
Diet: Low fat diet
Disposition: DC home.
Family communication: Discussed with at bedside.
Total time spent on today's encounter was 65 minutes which included time spent in counseling the patient/family regarding diagnosis and treatment plan as listed above, goals of care, and symptom management. Case was discussed with nursing staff,
specialists, and care coordinators/case management. All labs and imaging personally reviewed by me. Remainder the time spent in detailed review of previous records, lab data, imaging, and other medical provider documentation.
Anticipated Discharge: Today
Subjective/Interval History
-
Date of good service: October 12, 2024
Patient seen and examined at bedside, denies any chest pain or shortness of breath, improved abdominal pain, tolerated clear liquid diet and tolerated low-fat diet.
Objective Data
-
Labs:
Laboratory Results
10/12/24
07:40
WBC 19.0 H
Hgb 12.9 L
Hct 38.9 L
Plt Count 176
Sodium 133 L
Potassium 3.8
Chloride 101
Carbon Dioxide 26
BUN 15
Creatinine 0.7
Glucose 120 H
Calcium 8.4
Total Bilirubin 1.7 H
AST 28
ALT 33
Alkaline Phosphatase 59
Vital Signs:
Vital Signs
Temp Pulse Resp BP Pulse Ox
99.8 F 90 20 151/93 96
10/12/24 07:00 10/12/24 07:00 10/12/24 07:00 10/12/24 07:00 10/12/24 07:00
I&O
10/11/24 10/12/24 10/13/24
06:59 06:59 06:59
Intake Total 580 / 580 3100 / 3100
Balance 580 / 580 3100 / 3100
Physical Exam
-
General: Well Developed, Well Nourished, No Apparent Distress and Comfortable
HEENT: Normocephalic, Atraumatic, Moist Mucous Membranes, No Ptosis, PERRLA and Nose Appears Normal
Respiratory: Rales, Rhonchi and Non Labored Respirations
Cardiac: Regular Rhythm and S1/S2
Breast: Deferred by me
GI: Tender
Genito-urinary: No Costovertebral Tender
Musculoskeletal: No Clubbing, No Cyanosis and No Edema
Skin: Warm
Neuro: Awake, Alert, Oriented, AO x 3 and No Motor Deficits
Psych: Calm
Data Reviewed
-
Diagnostic Radiology: Image personally visualized and interpreted and Report Reviewed by me
CT Scan: Image personally visualized and interpreted and Report Reviewed by me
Ultrasound: Image personally visualized and interpreted and Report Reviewed by me
MRI: Image personally visualized and interpreted and Report Reviewed by me
Medical Tests (Nuc Med, Echo etc): Image personally visualized and interpreted and Report Reviewed by me
Labs: Labs Reviewed by me
Old Records: Reviewed
[2024-10-12 11:45] VITALS: BP 138/83
--- NOTE | 2024-10-13 16:11 | W.DCSUMMARY ---
Discharge Summary
Discharge Data
Date of Admission: 10/08/24
Date of Discharge: 10/12/24
Total time spent discharging patient (in min): 40
-
Pending Results: No
Hospital Course
Hospital course
Patient is a 64 y/o male past medical history of osteoarthritis, anxiety and prior episode of pancreatitis who presents with abdominal pain, he past medical history significant for prior episode of pancreatitis of unclear etiology, diabetes noted to
be elevated above [address]
CT A/P : Moderate peripancreatic inflammatory fat stranding and fluid. Fluid extends down the root of the mesentery. No hemorrhage necrosis or pseudocyst. The gallbladder is moderately distended with gallbladder wall thickening and faint
pericholecystic fat stranding at the rupali hepatis without radiopaque gallstones. Slightly increased intrahepatic and extrahepatic biliary ductal dilation. Common duct measures 11 mm with radiopaque ductal stones. Consider concomitant acute
cholecystitis and biliary obstruction with a gallstone.
Patient admitted under hospitalist service, consult for gastroenterology/surgery.
MRCP shows:
Acute pancreatitis.
Small filling defect of the distal common bile duct considered at least suspicious for choledocholithiasis and/or sludge. However, no evidence for cholelithiasis in the gallbladder lumen. Gallbladder hydrops and mild intrahepatic and extrahepatic
bile duct dilatation, increased compared to the MRI abdomen from 09/07/2023
GI recommending ERCP
Surgery recommending cholecystectomy.
10/10 ERCP attempted but secondary to diffuse edema at the duodenum, cannot proceed with the scope.
10/11 laparoscopic cholecystectomy with intraoperative cholangiogram which was negative for choledocholithiasis
Doing well, Tolerated low-fat diet and will be discharged home
During hospitalization patient was treated from the following
Acute pancreatitis -recurrent episode of pancreatitis #2 without clear etiology. Last evaluation was inconclusive and suspicion remains for gallstone pancreatitis. Cannot rule out acute cholecystis entirely
- Admit to MedSurg
- N.p.o. for now
- LR at 150
- As needed Dilaudid and Toradol.
- IV PPI daily, IV famotidine at bedtime
- Trend LFTs and lipase
- started on unasyn.
- US RUQ shows:
Preliminary report provided by [facility].
Findings suggesting adenomyomatosis of the gallbladder, with mild gallbladder wall thickening. No evidence for gallstones.
Dilated superior aspect of the common bile duct, tapering to normal caliber within the pancreatic head. No sonographic evidence for bile duct calculus.
The pancreas is unable to be adequately visualized.
Abdominal aorta is unable to be visualized, but has normal caliber on recent CT scan
- GI consultation/ Surgery consult.
10/09
added toradol to Dilaudid, then switched dilaudid to morphine.
Follow GI and surgery recommendations.
10/10
MRCP shows:
Acute pancreatitis.
Small filling defect of the distal common bile duct considered at least suspicious for choledocholithiasis and/or sludge. However, no evidence for cholelithiasis in the gallbladder lumen. Gallbladder hydrops and mild intrahepatic and extrahepatic
bile duct dilatation, increased compared to the MRI abdomen from 09/07/2023
GI recommending ERCP
Surgery recommending cholecystectomy.
10/10 ERCP attempted but secondary to diffuse edema at the duodenum, cannot proceed with the scope.
10/11 for cholecystectomy today
10/12
S/P laparoscopic cholecystectomy with intraoperative cholangiogram which was negative for choledocholithiasis
Doing well, Tolerated low-fat diet and will be discharged home
CODE STATUS: Full code
DVT prophylaxis: Lovenox
Diet: Low fat diet
Disposition: DC home.
Family communication: Discussed with at bedside.
Total time spent on today's encounter was 40 minutes which included time spent in counseling the patient/family regarding diagnosis and treatment plan as listed above, goals of care, and symptom management. Case was discussed with nursing staff,
specialists, and care coordinators/case management. All labs and imaging personally reviewed by me. Remainder the time spent in detailed review of previous records, lab data, imaging, and other medical provider documentation.
Anticipated Discharge: Today
Discharge Plan
-
Patient Disposition: Home (Routine Discharge)
Discharge Diagnosis/Procedures: Gallstone pancreatitis. Aborted ERCP. Laparoscopic cholecystectomy
Condition: Good
Diet: Low Fat
Activity: No strenuous activity
Driving Restrictions: As prior to admission
Bathing Restrictions: OK to Shower
Activity Restrictions/Additional Instructions:
Instructions following Laparoscopic Cholecystectomy
Please call [phone] if you have any questions or concerns after your surgery.
Wound Care:
Your incisions are covered with skin glue which will come off on its own in 5-10 days.
It is ok to shower the day after your surgery. Do not scrub the incisions, let soap and water wash over them and pat dry.
� Bruising around your incisions is normal.
� Using ice packs will help minimize this swelling.
� No swimming or soaking incisions for 1 week.
� Your stitches will dissolve and do not need to be removed.
Urinary retention:
If you are unable to urinate 6-8 hours after your surgery, please call [phone] to discuss further management.
Activity:
No heavy lifting more than 15 pounds for the next 3 weeks, then you may gradually lift heavier objects as tolerated by discomfort. Otherwise activity as tolerated by your comfort level.
Pain Management:
Use Tylenol, ibuprofen and ice packs to treat your pain.
� You may take 650 milligrams of Tylenol (Max 3 grams per day) every 6 hours, and 600 mg of ibuprofen also every 6 hours. (you can alternate them every 3 hours)
� You may use an ice pack to your incision as needed.
� If you still have pain not controlled by these measures, take your prescription pain medication as prescribed.
Medications:
You may resume your home medications.
Bowel Medications:
Prescription pain medication can make you constipated. If you take this medication, also take colace 100 mg twice daily (this is over the counter). If this is not sufficient, you may take Miralax (polyethylene glycol) to help move your bowels.
Diet:
After your procedure, there are no dietary restrictions. However, you may notice some loose stools with fatty meals for up to 4 weeks after surgery. If this is the case, please adjust to a low fat diet as needed.
Driving restrictions:
No driving if you are taking prescription pain medication or if you think your normal reaction time and attentiveness has been slowed by your surgery.
Things to Look out for:
Worsening Abdominal pain, fever, jaundice, redness or drainage from incision
Call Doctor for:
Please call if you notice worsening redness or drainage from incision(s) lasting longer than 5 days after your surgery, any foul-smelling drainage from the incision, pain not controlled by pain medications, persistent nausea and vomiting, or for any
fevers greater than 101.3 F. The number for questions/concerns is [phone]
Follow-up:
A follow-up appointment will be scheduled with your surgeon in 3-4 weeks. Please call prior to your appointment if you have any questions or concerns. [phone]
Instructions: Low-fat diet
Referrals:
PCP [Other] - in less than 1 week
Al Mayorga MD [Active, Surgical] - in two weeks
Margo Lopes MD [Active, Gastroenterology] - in three to four days
Prescriptions:
New
amoxicillin-pot clavulanate 875-125 mg tablet
1 tab PO BID Qty: 10 0RF
ketorolac 10 mg tablet
10 mg PO Q6H PRN (Reason: Pain) 5 Days Qty: 20 0RF
Continued
sertraline 100 mg tablet
100 mg PO DAILY
acetaminophen [Tylenol] 325 mg Tablet
650 mg PO Q6H PRN (Reason: pain)
meloxicam 15 mg Tablet
15 mg PO DAILY Qty: 0 0RF
Rx Instructions:
hold while taking Toradol
Discharge Orders:
Discharge Patient (As Directed); Ordered 10/12/24
Ordered By: Devon Sanchez
Discharge Date and Time
Discharge Date/Time: 10/12/24 13:13
Print Language: YORUBA
== END 2024-10-12 13:13 | disposition home or self-care (01) | DRG 853 ==
LOC: 2 NORTH 23:59
PROVIDERS: Nurse Practitioner; Physician Assistant Medical; Student in an Organized Health Care Education/Training Program; ADMITTING PHYSICIAN Internal Medicine; ATTENDING PHYSICIAN General Practice; EMERGENCY PHYSICIAN Emergency Medicine; OTHER PHYSICIAN Internal Medicine Gastroenterology; OTHER PHYSICIAN Surgery
PROC: 0DJ08ZZ Inspection of Upper Intestinal Tract, Via Natural or Artificial Opening Endoscopic (ICD-10-PCS; 2024-10-10)
PROC: 0FT44ZZ Resection of Gallbladder, Percutaneous Endoscopic Approach (ICD-10-PCS; 2024-10-11)
PROC: BF101ZZ Fluoroscopy of Bile Ducts using Low Osmolar Contrast (ICD-10-PCS; 2024-10-11)
DX: A41.9 Sepsis, unspecified organism (principal); K85.10 Biliary acute pancreatitis without necrosis or infection; K82.1 Hydrops of gallbladder; K80.50 Calculus of bile duct without cholangitis or cholecystitis without obstruction; F41.9 Anxiety disorder, unspecified; E11.9 Type 2 diabetes mellitus without complications; F17.290 Nicotine dependence, other tobacco product, uncomplicated; K21.9 Gastro-esophageal reflux disease without esophagitis; K59.09 Other constipation; K76.0 Fatty (change of) liver, not elsewhere classified; T88.4XXA Failed or difficult intubation, initial encounter; Z79.899 Other long term (current) drug therapy
CPT/HCPCS: 74177; 74181; 74300; 74330; 76000; 76700; 80048; 80053; 80076; 83690; 83735; 84478; 85025; 85027; 87040; 87086; 88304; 93005; 96361; 96374; 96375; 96376; 99285; C1769; J1610; Q9967